=== PATIENT | male | born 1955 | race Caucasian/White ===

== ENCOUNTER 2022-02-17 07:34 | Outpatient (CLI) | payer MEDICARE, BC, SELFPAY | END 2022-02-17 07:35 | disposition home or self-care (01) | PROVIDERS: PCP Surgery; Visit Provider Family Medicine | DX: M54.16 Radiculopathy, lumbar region (principal); M51.36 Other intervertebral disc degeneration, lumbar region | CPT/HCPCS: 64483; J1100; Q9966 ==

== ENCOUNTER 2022-04-20 13:52 | Emergency (ER) | payer MEDICARE, BC, SELFPAY ==
[2022-04-20 14:38] VITALS: BP 124/75; PULSE 63; RESP 14; TEMP 36.6; O2SAT 97; BMI 24.4
--- NOTE | 2022-04-20 17:30 | ED.SKABFB ---
HPI - Skin/Abscess/Foreign Bdy General Chief complaint: Skin/Abscess/Foreign Body Stated complaint: Cellulitis Time Seen by Provider: 04/20/22 17:14 History of Present Illness HPI narrative: This 66-year-old male comes in reporting some erythema and warmth on the right anterior thigh. This is been present for the past 3 days or so. He started taking doxycycline 6 days ago for a recurrent sinusitis. He does not report any fevers. Related Data Home Medications Medication Instructions Recorded Confirmed carvedilol 12.5 mg tablet mg 04/20/22 doxycycline hyclate 100 mg tablet mg 04/20/22 fluticasone propionate 50 intranasal 04/20/22 mcg/actuation nasal spray,suspension rosuvastatin 40 mg tablet mg 04/20/22 tamsulosin 0.4 mg capsule mg PO 04/20/22 Previous Rx's Medication Instructions Recorded cephalexin 500 mg capsule 500 mg PO TID 7 days #21 caps 04/20/22 Allergies Allergy/AdvReac Type Severity Reaction Status Date / Time No Known Drug Allergies Allergy Verified 02/17/22 08:10 Review of Systems Status of ROS: Reports: 10 or more systems reviewed and unremarkable except as noted in History and below Narrative: Constitutional: No fevers, no weight gain or loss. Eyes: No discharge. No vision changes. HENT: No congestion, no sore throat, no ear pain. Recurrent sinusitis symptoms. Cardiovascular: No chest pain, no palpitations. Respiratory: No shortness of breath, no wheezes, no cough. Gastrointestinal: No abdominal pain, no vomiting, no diarrhea. Genitourinary: No dysuria, no hematuria. Musculoskeletal: Normal range of motion. Skin: Erythema on the right anterior thigh as described above. Neurological: No dizziness, weakness, sensory change, speech change. Endo/Heme/Allergies: No bruising or bleeding. No polydipsia. Pysch: no suicidality, no anxiety, no insomnia. All other systems reviewed and are negative. Exam Narrative: Exam Narrative: Constitutional: Well-developed, well-nourished, no acute distress. HEENT: Normocephalic, atraumatic. Neck: Normal range of motion. Nontender. Supple. Heart: Intact distal pulses. Lungs: No chest discomfort. No wheezes, rhonchi, or rales. Abdomen: Nontender. Back: Normal range of motion. Extremities: Normal range of motion. No injury. Skin: Intact. The right thigh has an area of erythema that is approximately 12 cm in diameter. This is typical of cellulitis. There is no sign of abscess. Neurologic: No altered sensation. No weakness. Alert and oriented. Psychiatric: No suicidality. No anxiety or depression. No insomnia. Nursing notes and vitals signs are reviewed. Const: Vital Signs, click to edit/add: Vital Signs - 24 hr 04/20/22 14:38 Temperature 97.8 F Pulse Rate [Pulse Oximeter] 63 Respiratory Rate 14 Blood Pressure [Ri t Upper Arm] 124/75 Pulse Oximetry 97 Oxygen Delivery Me thod Room Air Course Vital Signs Vital signs: Initial Vital Signs Temperature 97.8 F 04/20/22 14:38 Temperature Source Temporal Artery Scan 04/20/22 14:38 Pulse Rate 63 04/20/22 14:38 Respiratory Rate 14 04/20/22 14:38 Blood Pressure 124/75 04/20/22 14:38 Blood Pressure Mean 91 04/20/22 14:38 Pulse Oximetry 97 04/20/22 14:38 Oxygen Delivery Method 04/20/22 14:38 Vital Signs Temperature 97.8 F 04/20/22 14:38 Pulse Rate 63 04/20/22 14:38 Respiratory Rate 14 04/20/22 14:38 Blood Pressure 124/75 04/20/22 14:38 Pulse Oximetry 97 04/20/22 14:38 Oxygen Delivery Method 04/20/22 14:38 Temperature 97.8 F 04/20/22 14:38 Pulse Rate 63 04/20/22 14:38 Respiratory Rate 14 04/20/22 14:38 Blood Pressure 124/75 04/20/22 14:38 Pulse Oximetry 97 04/20/22 14:38 Oxygen Delivery Method 04/20/22 14:38 MDM - Skin/Abscess/Foreign Bdy MDM Narrative Medical decision making narrative: This patient has a cellulitis in the right anterior thigh. He is currently taking doxycycline which according to [place] guide does not cover strep a and B species. Most likely this is a cellulitis that needs standard treatment with Keflex. This was prescribed for him. I advised him to continue with the doxycycline as scheduled also. I also describe signs and symptoms that indicate a need for return and re-evaluation. Discharge Plan Discharge Clinical Impression: Cellulitis Patient Disposition: Home, Self-Care Condition: Stable Additional Instructions: Take medication as prescribed. Continue other current plans also. Return if worsening. Prescriptions: New cephalexin 500 mg capsule 500 mg PO TID 7 Days Qty: 21 0RF No Action carvedilol 12.5 mg tablet tamsulosin 0.4 mg capsule PO fluticasone propionate 50 mcg/actuation spray,suspension INTRANASAL doxycycline hyclate 100 mg tablet Label Comments: TAKE 1 TABLET BY MOUTH TWICE DAILY FOR 10 DAYS rosuvastatin 40 mg tablet Follow Up/Referrals: Wiley Chiu MD [Primary Care Provider] - Stand Alone Forms: [employer] Info Instructions
[2022-04-20 17:51] VITALS: BP 149/92; PULSE 54; RESP 18; TEMP 35.9; O2SAT 97
== END 2022-04-20 17:59 | disposition home or self-care (01) ==
LOC: ED 17:40
PROVIDERS: Emergency Provider Emergency Medicine Emergency Medical Services; PCP Surgery
DX: L03.116 Cellulitis of left lower limb (principal)
CPT/HCPCS: 99282; 99283; 99284

== ENCOUNTER 2022-04-22 13:27 | Emergency (ER) | payer MEDICARE, BC, SELFPAY ==
[2022-04-22 13:39] VITALS: BP 136/80; PULSE 60; RESP 16; TEMP 36.2; O2SAT 100; BMI 24.4
--- NOTE | 2022-04-22 14:30 | ED.GENADULT ---
HPI - General Adult General Time Seen by Provider: 14:30 Date Seen: 04/22/22 Chief complaint: Skin/Abscess/Foreign Body Stated complaint: Cellulitis Time Seen by Provider: 04/22/22 13:30 Source: patient Mode of arrival: ambulatory Limitations: no limitations History of Present Illness HPI narrative: Patient is a 58 year white male was seen for cellulitis couple days ago and put on Keflex, been on doxycycline before that. He has noticed a rash on his back and chest. No shortness of breath, no difficulty breathing he thinks he had an abrasion on the right thigh and that caused the cellulitis. He has otherwise been pretty healthy sat mom heart history and is on carvedilol statin and tamsulosin. He has had no chills fevers or rigors Related Data Home Medications Medication Instructions Recorded Confirmed carvedilol 12.5 mg tablet mg 04/20/22 doxycycline hyclate 100 mg tablet mg 04/20/22 fluticasone propionate 50 intranasal 04/20/22 mcg/actuation nasal spray,suspension rosuvastatin 40 mg tablet 40 mg 04/20/22 tamsulosin 0.4 mg capsule 0.4 mg PO 04/20/22 Previous Rx's Medication Instructions Recorded cephalexin 500 mg capsule 500 mg PO TID 7 days #21 caps 04/20/22 sulfamethoxazole 800 1 tab PO BID #14 tabs 04/22/22 mg-trimethoprim 160 mg tablet Allergies Allergy/AdvReac Type Severity Reaction Status Date / Time No Known Drug Allergies Allergy Verified 02/17/22 08:10 Review of Systems Status of ROS: Reports: 6 or more systems reviewed and unremarkable except as noted in History and below PFSH PFS Social History Smoking Status: Never smoker Do you use any of these nicotine containing products: None Second hand tobacco smoke exposure: Yes How often do you have a drink containing alcohol: 2-3 times a week How many standard drinks containing alcohol do you have on a typical day: 1 or 2 How often do you have six or more drinks on one occasion: Never AUDIT-C Alcohol total score: 3 Non-prescribed substance use: denies use service: No Exam Narrative: Exam Narrative: Patient is a dollar bill size area of redness in the some central scabbing and his right anterior thigh, no fluctuance, no deep palpable firmness, it feels fairly superficial He has got a scar fine macular rash over his chest and back Const: Vital Signs, click to edit/add: Vital Signs - 24 hr 04/22/22 13:39 Temperature 97.2 F L Pulse Rate [Left P ulse Oximeter] 60 Respiratory Rate 16 Blood Pressure [Le ft Upper Arm] 136/80 Pulse Oximetry 100 Oxygen Delivery Me thod Room Air Course Vital Signs Vital signs: Initial Vital Signs Temperature 97.2 F L 04/22/22 13:39 Temperature Source Temporal Artery Scan 04/22/22 13:39 Pulse Rate 60 04/22/22 13:39 Pulse Rhythm 04/22/22 13:39 Pulse Strength 3+ Normal 04/22/22 13:39 Respiratory Rate 16 04/22/22 13:39 Blood Pressure 136/80 04/22/22 13:39 Blood Pressure Mean 98 04/22/22 13:39 Blood Pressure Position Sitting 04/22/22 13:39 Pulse Oximetry 100 04/22/22 13:39 Oxygen Delivery Method 04/22/22 13:39 Vital Signs Temperature 97.2 F L 04/22/22 13:39 Pulse Rate 60 04/22/22 13:39 Respiratory Rate 16 04/22/22 13:39 Blood Pressure 136/80 04/22/22 13:39 Pulse Oximetry 100 04/22/22 13:39 Oxygen Delivery Method 04/22/22 13:39 Temperature 97.2 F L 04/22/22 13:39 Pulse Rate 60 04/22/22 13:39 Respiratory Rate 16 04/22/22 13:39 Blood Pressure 136/80 04/22/22 13:39 Pulse Oximetry 100 04/22/22 13:39 Oxygen Delivery Method 04/22/22 13:39 Medical Decision Making MDM Narrative Medical decision making narrative: Patient has been on doxycycline and now Keflex for couple of days and has a macular rash, would stop the doxycycline and Keflex. I suspect that is the Keflex I gave him the rash. Will given Benadryl 50 mg orally now, have him continue 25-50 t.i.d. over the next 3-5 days. Will have him start Septra DS 1 p.o. b.i.d. x7 days starting tomorrow to make sure that the rash does not worsen today. Follow-up with primary care in 2-3 days for reassessment certainly sooner change concerns worsening they can return to the ED. May use some topical hydrocortisone as well for the rash if pruritic Discharge Plan Discharge Clinical Impression: Cellulitis Patient Disposition: Home, Self-Care Condition: Stable Additional Instructions: Light activity, Benadryl 25-50 mg t.i.d. over the next 3-4 days, topical 1% hydrocortisone to the rash area. Stop Keflex and doxycycline. Starting tomorrow 04/23, could start Septra DS 1 p.o. b.i.d. x7 days. Recheck with regular doctor in 48 hours to make sure it is improving. Return to ED sooner any problems concerns difficulty specifically breathing difficulty shortness of breath, etc. Activity Level: Light activity Discharge Diet: Regular Prescriptions: New sulfamethoxazole-trimethoprim 800-160 mg tablet 1 tab PO BID Qty: 14 0RF No Action carvedilol 12.5 mg tablet tamsulosin 0.4 mg capsule 0.4 mg PO fluticasone propionate 50 mcg/actuation spray,suspension INTRANASAL doxycycline hyclate 100 mg tablet Label Comments: TAKE 1 TABLET BY MOUTH TWICE DAILY FOR 10 DAYS rosuvastatin 40 mg tablet 40 mg cephalexin 500 mg capsule 500 mg PO TID 7 Days Qty: 21 0RF Follow Up/Referrals: Wiley Chiu MD [Primary Care Provider] - Stand Alone Forms: [employer] Info Instructions
== END 2022-04-22 14:21 | disposition home or self-care (01) ==
PROVIDERS: Emergency Provider Family Medicine; PCP Surgery
DX: L03.312 Cellulitis of back [any part except buttock and flank] (principal); L03.313 Cellulitis of chest wall
CPT/HCPCS: 99283

== ENCOUNTER 2022-05-05 12:13 | Outpatient (CLI) | payer MEDICARE, BC, SELFPAY | END 2022-05-05 12:14 | disposition home or self-care (01) | LOC: RAD 12:14 → INJ CL 12:16 | PROVIDERS: PCP Surgery; Visit Provider Family Medicine | DX: M53.3 Sacrococcygeal disorders, not elsewhere classified (principal) | CPT/HCPCS: 27096; J0702; Q9966 ==

== ENCOUNTER 2022-06-30 12:53 | Outpatient (CLI) | payer MEDICARE, BC, SELFPAY | END 2022-06-30 12:54 | disposition home or self-care (01) | LOC: INJ CL 12:55 | PROVIDERS: PCP Surgery; Visit Provider Family Medicine | DX: M53.3 Sacrococcygeal disorders, not elsewhere classified (principal) | CPT/HCPCS: 27096; J0702; Q9966 ==

== ENCOUNTER 2022-12-08 08:59 | Outpatient (CLI) | payer MEDICARE, BC, SELFPAY | END 2022-12-08 09:00 | disposition home or self-care (01) | LOC: INJ CL 09:00 | PROVIDERS: PCP Surgery; Visit Provider Family Medicine | DX: M53.3 Sacrococcygeal disorders, not elsewhere classified (principal) | CPT/HCPCS: 27096; J0702; Q9966 ==

== ENCOUNTER 2023-01-05 09:49 | Outpatient (CLI) | payer MEDICARE, BC, SELFPAY | END 2023-01-05 09:50 | disposition home or self-care (01) | LOC: INJ CL 09:50 | PROVIDERS: PCP Surgery; Visit Provider Family Medicine | DX: M54.16 Radiculopathy, lumbar region (principal) | CPT/HCPCS: 64483; 64484; J1100; Q9966 ==

== ENCOUNTER 2023-03-09 09:10 | Outpatient (CLI) | payer MEDICARE, BC, SELFPAY | END 2023-03-09 09:11 | disposition home or self-care (01) | LOC: INJ CL 09:10 | PROVIDERS: PCP Surgery; Visit Provider Family Medicine | DX: M53.3 Sacrococcygeal disorders, not elsewhere classified (principal) | CPT/HCPCS: 27096; J0702; Q9966 ==

== ENCOUNTER 2023-05-01 07:08 | Emergency (ER) | payer MEDICARE, BC, SELFPAY ==
[2023-05-01 07:29] VITALS: BP 116/65; PULSE 61; RESP 16; TEMP 37.1; O2SAT 98; BMI 25.0
--- NOTE | 2023-05-01 07:40 | ED.EYEPROB ---
HPI - Eye Problem General Chief complaint: Eye Problems Stated complaint: eye infection History of Present Illness HPI Narrative: Patient is a 67-year-old gentleman comes in today with mattery exudative drainage from both eyes. Also has swelling and erythema of the soft tissue around his eyes. He has sinus congestion nonproductive cough general malaise and fatigue as well. His visual acuity is unchanged. He has had no chest pain shortness a breath orthopnea no PND no nausea no vomiting. He states he does use eye lubrication but no other drops. Patient states he is otherwise healthy is up-to-date on his tetanus shot. Related Data Home Medications Medication Instructions Recorded Confirmed carvedilol 12.5 mg tablet mg 04/20/22 03/24/23 fluticasone propionate 50 intranasal 04/20/22 03/24/23 mcg/actuation nasal spray,suspension rosuvastatin 40 mg tablet 40 mg 04/20/22 03/24/23 tamsulosin 0.4 mg capsule 0.4 mg PO 04/20/22 03/24/23 aspirin 81 mg tablet,delayed 81 mg PO QDAY 01/25/23 03/24/23 release (Adult Aspirin Regimen) tadalafil 5 mg tablet (Cialis) 5 mg PO QDAY 01/25/23 03/24/23 valacyclovir 1 gram tablet 1,000 mg PO QDAY 01/25/23 03/24/23 (Valtrex) Previous Rx's Medication Instructions Recorded albuterol sulfate 90 mcg/actuation 2 puff inhalation Q4-6H PRN 08/09/22 aerosol inhaler shortness of breath or wheezing #6.7 grams amoxicillin 875 mg-potassium 1 tab PO Q12H Cellulitis #14 tabs 05/01/23 clavulanate 125 mg tablet gentamicin 0.3 % eye drops 2 drp ophthalmic (eye) Q4H 05/01/23 Conjunctivitis #5 mL Allergies Allergy/AdvReac Type Severity Reaction Status Date / Time guaifenesin [From Mucinex] Allergy Mild Verified 05/01/23 07:33 cephalexin [From Keflex] Allergy Rash Verified 03/25/23 11:32 doxycycline Allergy Rash Verified 03/25/23 11:32 Review of Systems Status of ROS: Reports: 10 or more systems reviewed and unremarkable except as noted in History and below [facility] Surgical History History of sinus surgery ?Z98.890 - Other specified postprocedural states (ICD-10) Social History Smoking Status: Never smoker Do you use any of these nicotine containing products: None Second hand tobacco smoke exposure: Yes How often do you have a drink containing alcohol: 2-3 times a week How many standard drinks containing alcohol do you have on a typical day: 1 or 2 How often do you have six or more drinks on one occasion: Never AUDIT-C Alcohol total score: 3 Non-prescribed substance use: denies use service: No Exam Narrative: Exam Narrative: EXAM GENERAL: Patient appears uncomfortable. EYES: Injection with exudative drainage noted with surrounding erythema of both I soft tissue. Tubular his melody is normal. ENT: Tympanic membranes and oropharynx normal. THYROID: no thyroid nodules or thyromegaly. LYMPH: No supraclavicular or cervical lymphadenopathy. SKIN: Visible skin seen during exam normal or with benign process only. EXT: No dependent lower extremity pedal edema. HEART: Regular rate and rhythm with no murmurs, rubs, or gallops. LUNGS: Clear to auscultation bilaterally with no crackles or wheezes. ABD: Soft, non tender, non distended. PSYCH: Good eye contact, speech is not pressured. Const: Vital Signs, click to edit/add: Vital Signs - 24 hr 05/01/23 07:29 Temperature 98.8 F Pulse Rate [Pulse Oximeter] 61 Respiratory Rate 16 Blood Pressure [Le ft Upper Arm] 116/65 Pulse Oximetry 98 Oxygen Delivery Me thod Room Air Course Course ED Course: Patient seen and examined. Vital Signs Vital signs: Initial Vital Signs Temperature 98.8 F 05/01/23 07:29 Temperature Source Temporal Artery Scan 05/01/23 07:29 Pulse Rate 61 05/01/23 07:29 Respiratory Rate 16 05/01/23 07:29 Blood Pressure 116/65 05/01/23 07:29 Blood Pressure Mean 82 05/01/23 07:29 Blood Pressure Position Sitting 05/01/23 07:29 Pulse Oximetry 98 05/01/23 07:29 Oxygen Delivery Method Room Air 05/01/23 07:29 Vital Signs Temperature 98.8 F 05/01/23 07:29 Pulse Rate 61 05/01/23 07:29 Respiratory Rate 16 05/01/23 07:29 Blood Pressure 116/65 05/01/23 07:29 Pulse Oximetry 98 05/01/23 07:29 Oxygen Delivery Method Room Air 05/01/23 07:29 Temperature 98.8 F 05/01/23 07:29 Pulse Rate 61 05/01/23 07:29 Respiratory Rate 16 05/01/23 07:29 Blood Pressure 116/65 05/01/23 07:29 Pulse Oximetry 98 05/01/23 07:29 Oxygen Delivery Method Room Air 05/01/23 07:29 MDM - Eye Problem MDM Narrative Medical decision making narrative: Patient presents with symptoms of pinkeye and sinusitis. Also has erythema of the soft tissue around both eyes. I did encourage him to keep the exudate very his daughter both eyes and informed him that of pinkeye is often very contagious. I placed him on gentamicin eyedrops plus Augmentin and recommended symptomatic treatment with primary care follow-up. Differential Diagnosis Differential diagnosis: Likely corneal abrasion, conjunctivitis, acute iritis, hyphema, periorbital cellulitis, subconjunctival hemorrhage, glaucoma, corneal ulcer and ruptured globe Discharge Plan Discharge Clinical Impression: Conjunctivitis Condition: Stable Instructions: Conjunctivitis (ED) Additional Instructions: Keep eyes clean Drops as directed Augmentin as directed Tylenol Motrin Follow-up with your doctor as needed Activity Level: No Restrictions Discharge Diet: Regular Prescriptions: New gentamicin 0.3 % drops 2 drp ophthalmic (eye) Q4H Qty: 5 1RF amoxicillin-pot clavulanate 875-125 mg tablet 1 tab PO Q12H Qty: 14 0RF No Action albuterol sulfate 90 mcg/actuation HFA aerosol inhaler 2 puff inhalation Q4-6H PRN (Reason: shortness of breath or wheezing) Qty: 6.7 0RF tadalafil [Cialis] 5 mg tablet 5 mg PO QDAY valacyclovir [Valtrex] 1 gram tablet 1,000 mg PO QDAY aspirin [Adult Aspirin Regimen] 81 mg tablet,delayed release (DR/EC) 81 mg PO QDAY carvedilol 12.5 mg tablet tamsulosin 0.4 mg capsule 0.4 mg PO fluticasone propionate 50 mcg/actuation spray,suspension INTRANASAL rosuvastatin 40 mg tablet 40 mg Follow Up/Referrals: Wiley Chiu MD [Primary Care Provider] - Stand Alone Forms: [employer] Instructions
== END 2023-05-01 08:11 | disposition home or self-care (01) ==
PROVIDERS: Emergency Provider Internal Medicine; PCP Surgery
DX: H10.9 Unspecified conjunctivitis (principal)
CPT/HCPCS: 95992; 99283

== ENCOUNTER 2023-07-05 17:32 | Outpatient (CLI) | payer MEDICARE, BC, SELFPAY | END 2023-07-05 17:33 | disposition home or self-care (01) | LOC: AMB 07-06 12:58 | PROVIDERS: PCP Surgery; Visit Provider Family Medicine | DX: M25.551 Pain in right hip (principal) | CPT/HCPCS: A0425; A0427 ==

== ENCOUNTER 2023-07-05 18:20 | Emergency (ER) | payer MEDICARE, BC, SELFPAY ==
[2023-07-05 18:27] VITALS: BP 128/76; PULSE 83; RESP 18; TEMP 36.3; O2SAT 96; BMI 25.1
[2023-07-05 19:02] LABS: Basophils Absolute Auto 0.03 K/uL (0.00-0.30); Basophils Percent Auto 0.6 % (0.0-3.0); Eosinophils Absolute Auto 0.22 K/uL (0.00-0.50); Eosinophils Percent Auto 4.5 % (0.0-7.0); Hematocrit 26.6 % (37.0-53.0); Lymphocytes Percent Auto 18.2 % (20-44); Mean Corpuscular HGB Conc 34 gm/dL (32-36); Mean Corpuscular Hemoglobin 31 pg (26-34); Mean Corpuscular Volume 92 fL (80-100); Monocytes Percent Auto 11.1 % (0.0-11.0); Neutrophils Percent Auto 65.6 % (42.0-72.0); Platelet Count* 184 K/uL (140-440); RDW Coefficient of Variation % 13.4 % (11.5-15.5); Red Blood Count 2.89 m/uL (4.30-5.90); White Blood Count* 4.88 K/uL (4.50-11.00)
[2023-07-05] MEDS: MORPHINE 4 MG/ML INJ IVP ×2 (19:04→21:11)
[2023-07-05 19:05] LABS: Slide Review Reflex No
[2023-07-05 19:17] LABS: Chloride* 100 mmol/L (96-114); Potassium* 3.8 mmol/L (3.6-5.1); Sodium* 135 mmol/L (135-149)
[2023-07-05 19:20] LABS: Creatinine* 1.3 mg/dL (0.5-1.5); Est. Creatinine Clearance* 57.12; Estimated Glomerular Filt Rate 59 ml/min
[2023-07-05 19:21] LABS: Anion Gap 9 mEq/L (7-15); Blood Urea Nitrogen* 25 mg/dL (7-30); Calcium* 9.5 mg/dL (8.4-10.6); Carbon Dioxide* 26 mmol/L (20-32); Glucose* 126 mg/dL (60-115)
[2023-07-05 19:23] LABS: C Reactive Protein* 4.3 mg/dL (0.5-1.0)
[2023-07-05 19:30] VITALS: BP 117/60
[2023-07-05 19:39] VITALS: PULSE 77; O2SAT 92
--- NOTE | 2023-07-05 20:40 | ED.GENADULT ---
HPI - General Adult General Date Seen: 07/05/23 Chief complaint: Hip Injury/Pain Stated complaint: hip pain Time Seen by Provider: 07/05/23 18:23 Source: patient, family and RN notes reviewed Mode of arrival: EMS Limitations: no limitations History of Present Illness HPI narrative: Patient is a 67-year-old male who had surgery on his right SI joint 6 days ago at [facility]. He reports that pain had been decreasing until yesterday when he started to get more pain in the lateral hip area. He feels the incision looks okay, he notes a lot of bruising. He is on a baby aspirin only in terms of anticoagulants. He has been taking oxycodone, he says he was given 20 knee initially and then was given another 40. He has not had fevers or chills. Pain is localized over the lateral hip. They checked in with the on-call orthopedist at the [facility] yesterday apparently, and were advised to call the clinic this morning. They say they called the clinic this morning, were told that it could be muscle spasm and they were prescribed cyclobenzaprine. His follow-up appointment is not for another 6 weeks or so. Related Data Home Medications Medication Instructions Recorded Confirmed carvedilol 12.5 mg tablet mg 04/20/22 03/24/23 fluticasone propionate 50 intranasal 04/20/22 03/24/23 mcg/actuation nasal spray,suspension rosuvastatin 40 mg tablet 40 mg 04/20/22 03/24/23 tamsulosin 0.4 mg capsule 0.4 mg PO 04/20/22 03/24/23 aspirin 81 mg tablet,delayed 81 mg PO QDAY 01/25/23 07/05/23 release (Adult Aspirin Regimen) tadalafil 5 mg tablet (Cialis) 5 mg PO QDAY 01/25/23 07/05/23 valacyclovir 1 gram tablet 1,000 mg PO QDAY 01/25/23 07/05/23 (Valtrex) cyclobenzaprine 10 mg tablet 10 mg PO 3XD 07/05/23 07/05/23 magnesium citrate 296 ml PO ONCE 07/05/23 07/05/23 methocarbamol 750 mg tablet 750 mg PO Q6H PRN 07/05/23 07/05/23 oxycodone 5 mg tablet mg PO 07/05/23 tramadol 50 mg tablet 50 mg PO 3XD PRN 07/05/23 07/05/23 Previous Rx's Medication Instructions Recorded albuterol sulfate 90 mcg/actuation 2 puff inhalation Q4-6H PRN 08/09/22 aerosol inhaler shortness of breath or wheezing #6.7 grams gentamicin 0.3 % eye drops 2 drp ophthalmic (eye) Q4H 05/01/23 Conjunctivitis #5 mL Allergies Allergy/AdvReac Type Severity Reaction Status Date / Time guaifenesin [From Mucinex] Allergy Mild Verified 07/05/23 18:32 cephalexin [From Keflex] Allergy Rash Verified 07/05/23 18:32 doxycycline Allergy Rash Verified 07/05/23 18:32 Review of Systems Status of ROS: Reports: 10 or more systems reviewed and unremarkable except as noted in History and below [facility] Surgical History History of sinus surgery ?Z98.890 - Other specified postprocedural states (ICD-10) Social History Smoking Status: Never smoker Do you use any of these nicotine containing products: None Second hand tobacco smoke exposure: Yes How often do you have a drink containing alcohol: 2-3 times a week How many standard drinks containing alcohol do you have on a typical day: 1 or 2 How often do you have six or more drinks on one occasion: Never AUDIT-C Alcohol total score: 3 Non-prescribed substance use: denies use service: No Exam Narrative: Exam Narrative: Vital signs as noted above. In general, an alert, nontoxic male. Kind of writhing on the bed. Head: Normocephalic, atraumatic. Eyes: Pupils are equal reactive. Extraocular movements are full. Conjunctivae are normal. ENT: Mucous membranes are moist. Throat is normal. Neck: Supple without lymphadenopathy. Heart: Regular rate and rhythm. No murmur or rub. Lungs: Clear bilaterally. No increased work of breathing, crackles or wheezes. Abdomen: Soft and nontender. Extremities: The right hip is notable for an intact incision without significant erythema, swelling or drainage. He has diffuse bruising noted over the lateral hip as well as in the right low back. Over the right lateral hip in the area of the greater trochanter and just distal to that he has swelling, significant bruising, and significant tenderness. There is no erythema, induration or warmth. Compartments otherwise soft. Flexion extension of the hip does not cause significant pain. Distal CMS intact. Neurologic: Patient is alert and oriented to person and place. Speech is fluent. Face is symmetric. Moves all extremities equally. Sensation intact to light touch. Affect: Normal. Skin: Warm and dry. Well perfused. Const: Vital Signs, click to edit/add: Vital Signs - 24 hr 07/05/23 18:27 07/05/23 19:30 07/05/23 19:39 Temperature 97.3 F L Pulse Rate 77 Pulse Rate [Pulse Oximeter] 83 Respiratory Rate 18 Blood Pressure [Le ft Upper Arm] 128/76 117/60 Pulse Oximetry 96 92 Oxygen Delivery Me thod Room Air Documenting provider has reviewed patient's vital signs: yes Course Course ED Course: Exam is consistent with a hematoma over the lateral hip area. His pain is very localized to the lateral hip, he is actually not complaining of SI pain or radiating pain. Palpation over the hematoma worsens his symptoms. The joint itself does not seem to be inflamed. He did note to the nurse after my initial evaluation that he has been having difficulty completely voiding today so Zuluaga was placed with about 600 mL out. He does have a history of prostatic hypertrophy and takes Flomax. I did labs including a CBC which shows a normal white blood cell count, hemoglobin is 9, baseline of 13.9 several years ago. This is likely related to postoperative blood loss and I suspect hematoma. Metabolic panel unremarkable. CRP mildly elevated at 4.3. I did discuss his case with Tiago Arredondo, who was on-call for Orthopedic surgery at [facility]. He did not feel imaging was needed given that clinically this does not appear to be infected. He recommended ice, ongoing use of pain medication. He said he would contact the patient's surgeon and let him know that he was having difficulty so that they can see him more promptly in follow-up. I have discussed all this with patient and his . He was in the ER for a bit while they waited on a ride, had an additional dose of morphine. Return as needed. Vital Signs Vital signs: Initial Vital Signs Temperature 97.3 F L 07/05/23 18:27 Temperature Source Temporal Artery Scan 07/05/23 18:27 Pulse Rate 83 07/05/23 18:27 Respiratory Rate 18 07/05/23 18:27 Blood Pressure 128/76 07/05/23 18:27 Blood Pressure Mean 93 07/05/23 18:27 Blood Pressure Position Supine 07/05/23 18:27 Pulse Oximetry 96 07/05/23 18:27 Oxygen Delivery Method Room Air 07/05/23 18:27 Vital Signs Temperature 97.3 F L 07/05/23 18:27 Pulse Rate 83 07/05/23 18:27 Respiratory Rate 18 07/05/23 18:27 Blood Pressure 128/76 07/05/23 18:27 Pulse Oximetry 96 07/05/23 18:27 Oxygen Delivery Method Room Air 07/05/23 18:27 Temperature 97.3 F L 07/05/23 18:27 Pulse Rate 77 07/05/23 19:39 Respiratory Rate 18 07/05/23 18:27 Blood Pressure 117/60 07/05/23 19:30 Pulse Oximetry 92 07/05/23 19:39 Oxygen Delivery Method Room Air 07/05/23 18:27 Medications Administered Medications: Discontinued Medications Generic Name Dose Route Start Last Admin Trade Name Freq PRN Reason Stop Dose Admin Morphine Sulfate 4 mg 07/05/23 18:41 07/05/23 19:04 Morphine 4 Mg/Ml Inj IVP 07/05/23 18:42 4 mg ONCE ONE Administration Morphine Sulfate 4 mg 07/05/23 20:46 07/05/23 21:11 Morphine 4 Mg/Ml Inj IVP 07/05/23 20:47 4 mg ONCE ONE Administration Medical Decision Making Lab Data Labs: Lab Results 07/05/23 Range/Units 18:57 WBC 4.88 (4.50-11.00) K/uL RBC 2.89 L (4.30-5.90) m/uL Hgb 9.0 L (13.5-17.5) gm/dL Hct 26.6 L (37.0-53.0) % MCV 92 (80-100) fL MCH 31 (26-34) pg MCHC 34 (32-36) gm/dL RDW Coeff of Rossana 13.4 (11.5-15.5) % Plt Count 184 (140-440) K/uL Neut % (Auto) 65.6 (42.0-72.0) % Lymph % (Auto) 18.2 L (20-44) % Wilkin % (Auto) 11.1 H (0.0-11.0) % Eos % (Auto) 4.5 (0.0-7.0) % Baso % (Auto) 0.6 (0.0-3.0) % Neut # (Auto) 3.20 (1.7-7.0) K/uL Lymph # (Auto) 0.90 (0.90-2.90) K/uL Wilkin # (Auto) 0.50 (0.00-0.90) K/UL Eos # (Auto) 0.22 (0.00-0.50) K/uL Baso # (Auto) 0.03 (0.00-0.30) K/uL Abs Immat Gran (auto) 0.00 (0.00-0.30) K/uL Imm/Tot Granulo (auto) 0.0 % Sodium 135 (135-149) mmol/L Potassium 3.8 (3.6-5.1) mmol/L Chloride 100 (96-114) mmol/L Carbon Dioxide 26 (20-32) mmol/L Anion Gap 9 (7-15) mEq/L BUN 25 (7-30) mg/dL Creatinine 1.3 (0.5-1.5) mg/dL Estimated Creat Clear 57.12 Estimated GFR 59 ml/min Glucose 126 H (60-115) mg/dL Calcium 9.5 (8.4-10.6) mg/dL C-Reactive Protein 4.3 H (0.5-1.0) mg/dL Discharge Plan Discharge Clinical Impression: Hematoma of right hip Patient Disposition: Home, Self-Care Condition: Improved Instructions: Hematoma (ED) Additional Instructions: Continue your oxycodone as prescribed. Ice, about 20 minutes several times a day for the next few days. I spoke with Dr. Maria Elena corral, he was going to relay your symptoms to your surgeon. Please call the clinic tomorrow so that more urgent follow-up can be arranged. If you notice redness, warmth, increasing pain or new symptoms such as fever, he should return to the ER. Prescriptions: No Action albuterol sulfate 90 mcg/actuation HFA aerosol inhaler 2 puff inhalation Q4-6H PRN (Reason: shortness of breath or wheezing) Qty: 6.7 0RF tadalafil [Cialis] 5 mg tablet 5 mg PO QDAY valacyclovir [Valtrex] 1 gram tablet 1,000 mg PO QDAY aspirin [Adult Aspirin Regimen] 81 mg tablet,delayed release (DR/EC) 81 mg PO QDAY carvedilol 12.5 mg tablet tamsulosin 0.4 mg capsule 0.4 mg PO fluticasone propionate 50 mcg/actuation spray,suspension INTRANASAL rosuvastatin 40 mg tablet 40 mg gentamicin 0.3 % drops 2 drp ophthalmic (eye) Q4H Qty: 5 1RF cyclobenzaprine 10 mg tablet 10 mg PO 3XD tramadol 50 mg tablet 50 mg PO 3XD PRN methocarbamol 750 mg tablet 750 mg PO Q6H PRN magnesium citrate Solution 296 ml PO ONCE oxycodone 5 mg tablet PO Follow Up/Referrals: Wiley Chiu MD [Primary Care Provider] - Stand Alone Forms: [facility] Info Instructions
[2023-07-05 21:53] VITALS: BP 124/82; PULSE 90; O2SAT 96
--- NOTE | 2023-07-05 21:55 | ED.NURSE ---
Pt catheter DC'd, additional ~400mLs urine emptied from catheter bag. Pt provided with walker, able to stand and pivot and take steps with assist of walker. MD notified.
== END 2023-07-05 22:06 | disposition home or self-care (01) ==
PROVIDERS: Emergency Provider Emergency Medicine; PCP Surgery
DX: S70.01XA Contusion of right hip, initial encounter (principal)
CPT/HCPCS: 36415; 51702; 80048; 85025; 86140; 96374; 96376; 99284; J2270

== ENCOUNTER 2023-07-30 09:27 | Inpatient (IN) | payer MEDICARE, BC, SELFPAY ==
[2023-07-30] VITALS (10 sets, daily range): BP systolic 98–130; BP diastolic 62–69; PULSE 76–85; RESP 16–18; TEMP 36.6–37.8; O2SAT 91–98; BMI 25.8
--- NOTE | 2023-07-30 09:52 | ED_ITS ---
HPI - General Adult General Time Seen by Provider: 09:52 Date Seen: 07/30/23 Chief complaint: Weakness Stated complaint: weakness- cant pee Time Seen by Provider: 07/30/23 09:52 Source: patient, RN notes reviewed and old records reviewed Mode of arrival: ambulatory Limitations: no limitations History of Present Illness HPI narrative: This 67-year-old male is coming in with inability to urinate since last night. He is on Flomax baseline. Baseline he admits to frequent nocturia. He is known to have prostate hypertrophy. He has had no fevers or chills. He is also complaining of increasing right buttock pain. This patient is known to have a history of a post surgical hematoma, had surgery on June 30. His notes his hemoglobin was 8.2 in clinic last week. He is on gabapentin, cyclobenzaprine and oxycodone for pain. He is complaining of significant right buttock pain, states it is worsening. 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 He is not on blood thinners. His hematoma was diagnosed on 07/05/2023. His surgery was at [facility], was on his right SI joint reportedly. His believes his hemoglobin before surgery was in the 14 range. Related Data Home Medications Medication Instructions Recorded Confirmed carvedilol 12.5 mg tablet 12.5 mg PO 04/20/22 03/24/23 fluticasone propionate 50 1 spray intranasal 04/20/22 03/24/23 mcg/actuation nasal spray,suspension rosuvastatin 40 mg tablet 40 mg PO DAILY 04/20/22 07/30/23 tamsulosin 0.4 mg capsule 0.4 mg PO Q24H 04/20/22 07/30/23 aspirin 81 mg tablet,delayed 81 mg PO QDAY 01/25/23 07/30/23 release (Adult Aspirin Regimen) tadalafil 5 mg tablet (Cialis) 5 mg PO QDAY 01/25/23 07/30/23 valacyclovir 1 gram tablet 1,000 mg PO QDAY 01/25/23 07/30/23 (Valtrex) cyclobenzaprine 10 mg tablet 10 mg PO 3XD 07/05/23 07/30/23 magnesium citrate 296 ml PO ONCE 07/05/23 07/05/23 oxycodone 5 mg tablet 5 mg PO Q4H 07/05/23 07/30/23 Previous Rx's Medication Instructions Recorded albuterol sulfate 90 mcg/actuation 2 puff inhalation Q4-6H PRN 08/09/22 aerosol inhaler shortness of breath or wheezing #6.7 grams gentamicin 0.3 % eye drops 2 drp ophthalmic (eye) Q4H 05/01/23 Conjunctivitis #5 mL Allergies Allergy/AdvReac Type Severity Reaction Status Date / Time guaifenesin [From Mucinex] Allergy Mild Verified 07/30/23 09:38 cephalexin [From Keflex] Allergy Rash Verified 07/30/23 09:38 doxycycline Allergy Rash Verified 07/30/23 09:38 Review of Systems Status of ROS: Reports: 6 or more systems reviewed and unremarkable except as noted in History and below [facility] Medical History Hip hematoma, right ?S70.01XA - Contusion of right hip, initial encounter (ICD-10) Surgical History History of hip surgery ?Z98.890 - Other specified postprocedural states (ICD-10) History of sinus surgery ?Z98.890 - Other specified postprocedural states (ICD-10) Social History Smoking Status: Never smoker Do you use any of these nicotine containing products: None Second hand tobacco smoke exposure: Yes How often do you have a drink containing alcohol: 2-3 times a week How many standard drinks containing alcohol do you have on a typical day: 1 or 2 How often do you have six or more drinks on one occasion: Never AUDIT-C Alcohol total score: 3 Non-prescribed substance use: denies use service: No Exam Const: Vital Signs, click to edit/add: Vital Signs - 24 hr 07/30/23 09:31 07/30/23 10:01 07/30/23 11:15 Temperature 97.9 F Pulse Rate [Pulse Oximeter] 80 78 Respiratory Rate 18 16 Blood Pressure [Ri ght Upper Arm] 98/62 130/68 Pulse Oximetry 97 98 93 Oxygen Delivery Me thod Room Air Room Air 07/30/23 12:15 07/30/23 14:35 07/30/23 15:15 Temperature Pulse Rate [Pulse Oximeter] 84 76 79 Respiratory Rate 16 16 16 Blood Pressure [Ri ght Upper Arm] 121/62 117/69 116/68 Pulse Oximetry 98 97 98 Oxygen Delivery Me thod Room Air Room Air Room Air 07/30/23 16:15 Temperature Pulse Rate [Pulse Oximeter] 76 Respiratory Rate 16 Blood Pressure [Ri ght Upper Arm] 119/67 Pulse Oximetry 91 Oxygen Delivery Me thod Room Air This 67-year-old male is alert, interactive, initially uncomfortable. Nursing staff was getting about 350 mL on bladder scan but patient was quite uncomfortable. Zuluaga was placed with immediate return of clear yellow urine and patient had significant relief of his abdominal discomfort. He was noted to be complaining of pain, did not want to lie on the right buttock area. Face atraumatic, sclera clear, conjugate gaze. Speech is normal. Lungs are clear, no wheezing or crackles, no tachypnea. CV regular rate and rhythm, no murmur, normal S1-S2, no S3-S4. Abdomen after the fully placed is soft, still with some mild suprapubic tenderness but the fully just been placed. No rebound or guarding, no organomegaly outside of bladder noted. He has dependent ecchymosis it seems to be resolving down the right thigh. He has got a well-healed scar over the right upper gluteal area, this is nontender. He has significant t enderness when I palpate within the gluteus muscle on the right. I see no overlying ecchymosis. His feels like it is still swollen quite a bit. There is maybe some [id number] swelling, difficult to say for sure as this is the 1st time I am seeing this. He is certainly tender when I palpate generally in the gluteus muscle. Really no pain with range of motion of his lower extremities, neurovascular seems to be intact. Documenting provider has reviewed patient's vital signs: yes Course Course ED Course: Patient had obvious urinary retention which is resolved with Zuluaga catheter placement. Will obtain urinalysis but doubt infectious etiology. He is also having significant increasing right buttock pain in the setting of surgery and complicating hematoma. Will give him some IV morphine for pain control, I will do a pelvis CT with IV contrast in obtain baseline labs. He will be monitored on pulse oximetry. Will do type and screening cases hemoglobin is for some reason lowering. Reevaluation(s) Time of Reevaluation #1: 12:38 Reevaluation #1: Reviewed CT and labs with patient and his , hemoglobin at 8.5, not significantly worse. His believes the current size of the hematoma which is 6 x 10 x 13 cm is bigger than the last CT. This was done with the surgeon. We will attempt to contact Dr. Dunbar whom was the surgeon. In trying to pinpoint down if he truly feels that there was not time of specific worsening in this right gluteal region, his feels over the last 2 days she feels his pain is been a bit out of proportion or maybe worse. He does note the pain seems to be worse at night but probably because he is trying to lie down. It certainly does sound like there has been some acute worsening of his right buttock pain or the last couple days. Consultations Consultation #1: We have paged Dr. Dunbar as well as the on-call orthopedist multiple times through the [email or web address] system. We have not heard back yet. I finally have a copy the CT with the measuring hematoma from June which is larger. We will attempt to page out the hospitalist at this time. Time: 17:26 Consultation #2: Have spoken to our hospitalist, still have not heard anything back from anyone at the [facility]. We will observe him here, trend his hemoglobin, work on pain management. I will update the patient and his . Vital Signs Vital signs: Initial Vital Signs Temperature 97.9 F 07/30/23 09:31 Temperature Source Temporal Artery Scan 07/30/23 09:31 Pulse Rate 80 07/30/23 09:31 Respiratory Rate 18 07/30/23 09:31 Blood Pressure 98/62 07/30/23 09:31 Blood Pressure Mean 74 07/30/23 09:31 Blood Pressure Position Sitting 07/30/23 09:31 Pulse Oximetry 97 07/30/23 09:31 Oxygen Delivery Method Room Air 07/30/23 09:31 Vital Signs Temperature 97.9 F 07/30/23 09:31 Pulse Rate 80 07/30/23 09:31 Respiratory Rate 18 07/30/23 09:31 Blood Pressure 98/62 07/30/23 09:31 Pulse Oximetry 97 07/30/23 09:31 Oxygen Delivery Method Room Air 07/30/23 09:31 Temperature 97.9 F 07/30/23 09:31 Pulse Rate 76 07/30/23 16:15 Respiratory Rate 16 07/30/23 16:15 Blood Pressure 119/67 07/30/23 16:15 Pulse Oximetry 91 07/30/23 16:15 Oxygen Delivery Method Room Air 07/30/23 16:15 Medications Administered Medications: Discontinued Medications Generic Name Dose Route Start Last Admin Trade Name Keyurq PRN Reason Stop Dose Admin Morphine Sulfate 4 mg 07/30/23 10:01 07/30/23 10:17 Morphine 4 Mg/Ml Inj IVP 07/30/23 10:02 4 mg ONCE ONE Administration Oxycodone HCl 5 mg 07/30/23 15:08 07/30/23 15:13 Oxycodone 5 Mg Tablet PO 07/30/23 15:09 5 mg ONCE ONE Administration Medical Decision Making Medical Records Medical records reviewed: Yes I reviewed the patient's medical records Medical records narrative: Patient had a pelvis CT without contrast 07/15/2023. He had a fusion of his right sacroiliac joint for sacroiliitis. The right gluteus medius muscle peripherally more hyper attenuating collection measures approximately 10.9 x 7.3 x 11.6 cm (oblique, axial, cranial caudal), most consistent with hematoma based on clinical history. Associated more diffuse asymmetric enlargement of the right gluteus medius. Lab Data Lab results reviewed: Yes I reviewed the patient's lab results Labs: Lab Results 07/30/23 07/30/23 07/30/23 Range/Units 10:00 10:12 10:45 WBC 7.92 (4.50-11.00) K/uL RBC 2.89 L (4.30-5.90) m/uL Hgb 8.5 L (13.5-17.5) gm/dL Hct 26.7 L (37.0-53.0) % MCV 92 (80-100) fL MCH 29 (26-34) pg MCHC 32 (32-36) gm/dL RDW Coeff of Ross[place] 14.3 (11.5-15.5) % Plt Count 240 (140-440) K/uL Neut % (Auto) 81.5 H (42.0-72.0) % Lymph % (Auto) 9.1 L (20-44) % [place] % (Auto) 7.7 (0.0-11.0) % Eos % (Auto) 1.3 (0.0-7.0) % Baso % (Auto) 0.3 (0.0-3.0) % Neut # (Auto) 6.50 (1.7-7.0) K/uL Lymph # (Auto) 0.70 L (0.90-2.90) K/uL [place] # (Auto) 0.60 (0.00-0.90) K/UL Eos # (Auto) 0.10 (0.00-0.50) K/uL Baso # (Auto) 0.02 (0.00-0.30) K/uL Abs Immat Gran (auto) 0.01 (0.00-0.30) K/uL Imm/Tot Granulo (auto) 0.1 % INR 1.07 (0.91-1.10) APTT 39 H (23-33) Seconds Sodium 135 (135-149) mmol/L Potassium 4.0 (3.6-5.1) mmol/L Chloride 105 (96-114) mmol/L Carbon Dioxide 24 (20-32) mmol/L Anion Gap 6 L (7-15) mEq/L BUN 21 (7-30) mg/dL Creatinine 1.0 (0.5-1.5) mg/dL Estimated Creat Clear 71.99 Estimated GFR 81 ml/min Glucose 107 (60-115) mg/dL Calcium 9.5 (8.4-10.6) mg/dL Total Bilirubin 1.2 (0.1-1.5) mg/dL AST 42 H (12-35) U/L ALT 30 (4-50) U/L Alkaline Phosphatase 81 (40-150) U/L C-Reactive Protein 5.5 H (0.5-1.0) mg/dL Total Protein 7.9 (6.0-8.3) g/dL Albumin 4.3 (3.3-5.0) g/dL Urine Color Yellow (Yellow) Urine Appearance Clear (Clear) Urine pH 6.0 (5.0-8.5) Ur Specific [place] 1.025 (1.000-1.030) Urine Protein 1+ A (Negative) Urine Glucose (UA) Negative (Negative) Urine Ketones Negative (Negative) Urine Blood Negative (Negative) Urine Nitrite Negative (Negative) Urine Bilirubin Negative (Negative) Urine Urobilinogen 1.0 (0.2-1.0) Ur Leukocyte Esterase Negative (Negative) Urine RBC 0-2 (0-2) Urine WBC 0-2 (0-5) Ur Squamous Epith Cells Few (None-Few) Urine Bacteria None (None) Blood Type O Positive Antibody Screen NEGATIVE 07/30/23 Range/Units 14:50 WBC (4.50-11.00) K/uL RBC (4.30-5.90) m/uL Hgb 8.2 L (13.5-17.5) gm/dL Hct (37.0-53.0) % MCV (80-100) fL MCH (26-34) pg MCHC (32-36) gm/dL RDW Coeff of Rossana (11.5-15.5) % Plt Count (140-440) K/uL Neut % (Auto) (42.0-72.0) % Lymph % (Auto) (20-44) % [place] % (Auto) (0.0-11.0) % Eos % (Auto) (0.0-7.0) % Baso % (Auto) (0.0-3.0) % Neut # (Auto) (1.7-7.0) K/uL Lymph # (Auto) (0.90-2.90) K/uL [place] # (Auto) (0.00-0.90) K/UL Eos # (Auto) (0.00-0.50) K/uL Baso # (Auto) (0.00-0.30) K/uL Abs Immat Gran (auto) (0.00-0.30) K/uL Imm/Tot Granulo (auto) % INR (0.91-1.10) APTT (23-33) Seconds Sodium (135-149) mmol/L Potassium (3.6-5.1) mmol/L Chloride (96-114) mmol/L Carbon Dioxide (20-32) mmol/L Anion Gap (7-15) mEq/L BUN (7-30) mg/dL Creatinine (0.5-1.5) mg/dL Estimated Creat Clear Estimated GFR ml/min Glucose (60-115) mg/dL Calcium (8.4-10.6) mg/dL Total Bilirubin (0.1-1.5) mg/dL AST (12-35) U/L ALT (4-50) U/L Alkaline Phosphatase (40-150) U/L C-Reactive Protein (0.5-1.0) mg/dL Total Protein (6.0-8.3) g/dL Albumin (3.3-5.0) g/dL Urine Color (Yellow) Urine Appearance (Clear) Urine pH (5.0-8.5) Ur Specific [place] (1.000-1.030) Urine Protein (Negative) Urine Glucose (UA) (Negative) Urine Ketones (Negative) Urine Blood (Negative) Urine Nitrite (Negative) Urine Bilirubin (Negative) Urine Urobilinogen (0.2-1.0) Ur Leukocyte Esterase (Negative) Urine RBC (0-2) Urine WBC (0-5) Ur Squamous Epith Cells (None-Few) Urine Bacteria (None) Blood Type Antibody Screen Imaging Data CT pelvis: Attestation: I have reviewed the pertinent imaging results. Radiologist's impression: Patient: MEGHNA CURIEL Facility:?[facility] Patient ID:?[id number] Site Patient ID:?[id number]. Site :?[id number] Study:?CT Pelvis W/IV ONLY-07/30/2023 11:55:45 AM Ordering Physician:ZAHRA Final Report: EXAM: CT OF THE PELVIS, WITH IV CONTRAST CLINICAL INDICATION: Progressive right buttock pain. Hematoma SI joint surgery 1 month prior. COMPARISON STUDIES: None. TECHNICAL: Enhanced CT of the pelvis with axial images. Sagittal oblique and coronal oblique reformatted images were created. Contrast: Isovue 370, 89 mL. FINDINGS: OSSEOUS STRUCTURES: No acute fractures are evident. Partial visualization of a chronic fracture in the posterior process of L3. Multiple benign islands. No evidence for chronic avascular necrosis. OTHER JOINT SPACES: Right Hip: No effusion. Mild narrowing and hypertrophic change. Left Hip: No effusion. Mild narrowing and hypertrophic change. SI Joints: Right SI joint fusion. No hardware fracture or lucency adjacent to the fixation. Moderate degenerative changes in the left SI joint. Lumbar Spine: Degenerative changes in the lower lumbar spine. SOFT TISSUES MUSCLES AND TENDONS: There is a large hematoma extending from the right greater sciatic notch laterally into the right gluteal region displacing the gluteus medius and kirsten musculature as well as the piriformis. The hematoma measures 16 x 13 x 10 cm in size. There is a mixture of decreased and increased density within the hematoma. The majority of the hematoma demonstrates increased density centrally. Findings are consistent with an acute to subacute component of the hematoma. The superior gluteal artery abuts the medial margin of the hematoma. However no arterial extravasation is identified. No retracted tendon tear. No muscle atrophy. INTRAPELVIC CONTENTS: Trace free fluid in the pelvis. The free fluid does not appear high density to suggest hemorrhage. Zuluaga catheter in the bladder. Postoperative changes in the lower anterior abdominal wall. NEUROVASCULAR STRUCTURES: No abnormality of the neurovascular structures. IMPRESSION: 1. Large hematoma in the right gluteal region, the majority of which appears acute. No arterial extravasation from the adjacent superior gluteal artery. 2. Trace free fluid in the pelvis. 3. Internal fixation of the right SI joint. 4. Degenerative changes in the left SI joint and both hips. 5. Degenerative changes lower lumbar spine. 6. Partially visualized chronic fracture of the posterior process of L3. Please note that all CT scans at this facility use dose modulation, iterative reconstruction, and/or weight-based dosing when appropriate to reduce radiation dose to as low as reasonably achievable. Dictated by Jaden Aguilera MD @ 07/30/2023 12:25:28 PM (Electronic Signature) Discharge Plan Discharge Clinical Impression: Status post fusion of sacroiliac joint, Hematoma of right buttock, Acute blood loss anemia, Acute urinary retention Patient Disposition: Admitted As Observation
--- NOTE | 2023-07-30 10:01 | CT_ITS ---
Patient: MEGHNA CURIEL Facility:?[facility] Patient ID:?[id number] Site Patient ID:?[id number]. Site :?[id number] Study:?CT-Pelvis W/IV ONLY-07/30/2023 11:55:45 AM Ordering Physician:ZAHRA Final Report: EXAM: CT OF THE PELVIS, WITH IV CONTRAST CLINICAL INDICATION: Progressive right buttock pain. Hematoma SI joint surgery 1 month prior. COMPARISON STUDIES: None. TECHNICAL: Enhanced CT of the pelvis with axial images. Sagittal oblique and coronal oblique reformatted images were created. Contrast: Isovue 370, 89 mL. FINDINGS: OSSEOUS STRUCTURES: No acute fractures are evident. Partial visualization of a chronic fracture in the posterior process of L3. Multiple benign islands. No evidence for chronic avascular necrosis. OTHER JOINT SPACES: Right Hip: No effusion. Mild narrowing and hypertrophic change. Left Hip: No effusion. Mild narrowing and hypertrophic change. SI Joints: Right SI joint fusion. No hardware fracture or lucency adjacent to the fixation. Moderate degenerative changes in the left SI joint. Lumbar Spine: Degenerative changes in the lower lumbar spine. SOFT TISSUES MUSCLES AND TENDONS: There is a large hematoma extending from the right greater sciatic notch laterally into the right gluteal region displacing the gluteus medius and kirsten musculature as well as the piriformis. The hematoma measures 16 x 13 x 10 cm in size. There is a mixture of decreased and increased density within the hematoma. The majority of the hematoma demonstrates increased density centrally. Findings are consistent with an acute to subacute component of the hematoma. The superior gluteal artery abuts the medial margin of the hematoma. However no arterial extravasation is identified. No retracted tendon tear. No muscle atrophy. INTRAPELVIC CONTENTS: Trace free fluid in the pelvis. The free fluid does not appear high density to suggest hemorrhage. Zuluaga catheter in the bladder. Postoperative changes in the lower anterior abdominal wall. NEUROVASCULAR STRUCTURES: No abnormality of the neurovascular structures. IMPRESSION: 1. Large hematoma in the right gluteal region, the majority of which appears acute. No arterial extravasation from the adjacent superior gluteal artery. 2. Trace free fluid in the pelvis. 3. Internal fixation of the right SI joint. 4. Degenerative changes in the left SI joint and both hips. 5. Degenerative changes lower lumbar spine. 6. Partially visualized chronic fracture of the posterior process of L3. Please note that all CT scans at this facility use dose modulation, iterative reconstruction, and/or weight-based dosing when appropriate to reduce radiation dose to as low as reasonably achievable. Dictated by Jaden Aguilera MD @ 07/30/2023 12:25:28 PM Signed by:?Jaden Aguilera MD @07/30/2023 12:25:28 PM (Electronic Signature)
[2023-07-30 10:11] LABS: Appearance Urine Clear (Clear); Bilirubin Urine Negative (Negative); Blood Urine Negative (Negative); Color Urine Yellow (Yellow); Glucose Urine Negative (Negative); Ketones Urine Negative (Negative); Leukocyte Esterase Urine Negative (Negative); Nitrite Urine Negative (Negative); Protein Urine 1+ (Negative); Specific Gravity Urine 1.025 (1.000-1.030)
[2023-07-30] MEDS: MORPHINE 4 MG/ML INJ IVP ×2 (10:17→20:04)
[2023-07-30 10:28] LABS: Basophils Absolute Auto 0.02 K/uL (0.00-0.30); Basophils Percent Auto 0.3 % (0.0-3.0); Eosinophils Percent Auto 1.3 % (0.0-7.0); Hematocrit 26.7 % (37.0-53.0); Hemoglobin* 8.5 gm/dL (13.5-17.5); Immature Granulocytes Abs Auto 0.01 K/uL (0.00-0.30); Immature Granulocytes Pct Auto 0.1 %; Lymphocytes Percent Auto 9.1 % (20-44); Mean Corpuscular HGB Conc 32 gm/dL (32-36); Mean Corpuscular Hemoglobin 29 pg (26-34); Mean Corpuscular Volume 92 fL (80-100); Monocytes Percent Auto 7.7 % (0.0-11.0); Neutrophils Percent Auto 81.5 % (42.0-72.0); Platelet Count* 240 K/uL (140-440); RDW Coefficient of Variation % 14.3 % (11.5-15.5); Red Blood Count 2.89 m/uL (4.30-5.90); White Blood Count* 7.92 K/uL (4.50-11.00)
[2023-07-30 10:31] LABS: Slide Review Reflex No
[2023-07-30 10:43] LABS: Chloride* 105 mmol/L (96-114)
[2023-07-30 10:44] LABS: Albumin* 4.3 g/dL (3.3-5.0); Sodium* 135 mmol/L (135-149)
[2023-07-30 10:46] LABS: Est. Creatinine Clearance* 71.99; Estimated Glomerular Filt Rate 81 ml/min
[2023-07-30 10:47] LABS: Alanine Aminotransferase* 30 U/L (4-50); Alkaline Phosphatase* 81 U/L (40-150); Anion Gap 6 mEq/L (7-15); Aspartate Amino Transferase* 42 U/L (12-35); Bilirubin Total* 1.2 mg/dL (0.1-1.5); Blood Urea Nitrogen* 21 mg/dL (7-30); Carbon Dioxide* 24 mmol/L (20-32); Glucose* 107 mg/dL (60-115); Total Protein* 7.9 g/dL (6.0-8.3)
[2023-07-30 10:47] LABS: RBC Urine 0-2 (0-2)
[2023-07-30 10:48] LABS: Squamous Epithelial Cell Urine Few (None-Few); WBC Urine 0-2 (0-5)
[2023-07-30 10:48] LABS: Calcium* 9.5 mg/dL (8.4-10.6)
[2023-07-30 10:49] LABS: INR 1.07 (0.91-1.10); Prothrombin Time 14.6 Seconds
[2023-07-30 10:50] LABS: C Reactive Protein* 5.5 mg/dL (0.5-1.0); Partial Thromboplastin Time* 39 Seconds (23-33)
[2023-07-30 15:02] LABS: Hemoglobin* 8.2 gm/dL (13.5-17.5)
[2023-07-30] MEDS: OXYCODONE 5 MG TABLET PO ×2 (15:13→22:13)
--- NOTE | 2023-07-30 19:22 | P.IMHP_ITS ---
Hospitalist- H&P: HPI History of Present Illness Date Seen: 07/30/23 Chief complaint: weakness- cant pee Narrative: Mihir Jacobo is a 67 year old male who presented to the ER with his this afternoon for severe right buttock pain, in addition to inability to urinate. He underwent an SI joint fusion on 06/29/23 at [facility] with Dr. Dunbar. Was feeling okay until 07/05 (pain worsened at that time), was seen in our ER and found to have a hematoma. He's been seeing his Ortho team in f/u with imaging and has been holding his aspirin. Pain worsened again over the last 24 hours and Solo continues to have pain down his entire right leg, starting at buttock (site of surgery). He is not having any relief from home medications and is unable to sleep. No fall or trauma since surgery. No known bleeding disorders, but has been referred to Hematology given previous postoperative bleeding. Regarding the urinary retention, known history of BPH, on Flomax. Has not been able to urinate since last night. Normal sensation. ER Course and findings: - Hgb 8.5, repeat after 6 hours 8.2 - no hypotension or tachycardia - ER physician attempted to reach patient's Orthopedic Surgery team at [facility], did not receive a call back during patient's stay - CT reveals persistent/enlarging hematoma; per formal radiology read: There is a large hematoma extending from the right greater sciatic notch laterally into the right gluteal region displacing the gluteus medius and kirsten musculature as well as the piriformis. The hematoma measures 16 x 13 x 10 cm in size. There is a mixture of decreased and increased density within the hematoma. The majority of the hematoma demonstrates increased density centrally. Findings are consistent with an acute to subacute component of the hematoma. The superior gluteal artery abuts the medial margin of the hematoma. However no arterial extravasation is identified. No retracted tendon tear. No muscle atrophy. Given concern for acute bleeding, in addition to uncontrolled pain, patient admitted to the hospital for monitoring and IV pain medication. Histories updated below. PCP is Dr. Chiu locally, Dr. Mario is [facility]. Review of Systems Status of ROS: Reports: 10 or more systems reviewed and unremarkable except as noted in History and below Narrative: - no chest pain or dyspnea - besides RLE bruising, no other skin concerns - no saddle anesthesia - no nausea or vomiting PFSH PFSH Medical History (Updated 07/30/23 @ 20:44 by Samantha Rosario MD) Cardiomyopathy ?I42.9 - Cardiomyopathy, unspecified (ICD-10) Nephrolithiasis ?N20.0 - Calculus of kidney (ICD-10) Hip hematoma, right ?S70.01XA - Contusion of right hip, initial encounter (ICD-10) Surgical History (Updated 07/30/23 @ 20:39 by Samantha Rosario MD) H/O coronary angiogram ?Z98.890 - Other specified postprocedural states (ICD-10) Hx of appendectomy ?Z90.49 - Acquired absence of other specified parts of digestive tract (ICD- 10) H/O inguinal hernia repair ?Z98.890 - Other specified postprocedural states (ICD-10) ?Z87.19 - Personal history of other diseases of the digestive system (ICD-10) H/O laminectomy ?Z98.890 - Other specified postprocedural states (ICD-10) History of knee replacement ?Z96.659 - Presence of unspecified artificial knee joint (ICD-10) H/O mitral valve repair ?Z98.890 - Other specified postprocedural states (ICD-10) History of hip surgery ?Z98.890 - Other specified postprocedural states (ICD-10) History of sinus surgery ?Z98.890 - Other specified postprocedural states (ICD-10) Social History What is your current living situation?: I presently have a place to live Problems where you live: no known problems Problems where you live details: na In the past 12 months, utilities in danger of being shut off: no In past 12 months, lack of transportation kept you from medical appts, meetings, work, or getting things needed for daily living: no In the past 12 mos, have been you worried that your food would run out before you had money to buy more?: never true In the past 12 mos, the food you bought just didn't last and you didn't have money to buy more?: never true Smoking Status: Never smoker Do you use any of these nicotine containing products: None Second hand tobacco smoke exposure: No How often do you have a drink containing alcohol: never How many standard drinks containing alcohol do you have on a typical day: 1 or 2 How often do you have six or more drinks on one occasion: Never AUDIT-C Alcohol total score: 0 Non-prescribed substance use: denies use Caffeine: No How often does anyone, including family, friends and others, physically hurt you : never How often does anyone, including family, friends and others, insult or talk down to you: never How often does anyone, including family, friends and others, threaten you with harm: never How often does anyone, including family, friends and others, scream or curse at you: never service: No Meds Home Medications and Allergies Home Medications Medication Instructions Recorded Confirmed Type carvedilol 12.5 mg tablet 12.5 mg PO BID 04/20/22 07/30/23 History fluticasone propionate 50 1 spray intranasal DAILY 04/20/22 07/30/23 History mcg/actuation nasal spray,suspension rosuvastatin 40 mg tablet 40 mg PO DAILY 04/20/22 07/30/23 History tamsulosin 0.4 mg capsule 0.4 mg PO Q24H 04/20/22 07/30/23 History aspirin 81 mg tablet,delayed 81 mg PO QDAY 01/25/23 07/30/23 History release (Adult Aspirin Regimen) tadalafil 5 mg tablet (Cialis) 5 mg PO DAILY 01/25/23 07/30/23 History valacyclovir 1 gram tablet 1,000 mg PO DAILY 01/25/23 07/30/23 History (Valtrex) cyclobenzaprine 10 mg tablet 10 mg PO TID 07/05/23 07/30/23 History oxycodone 5 mg tablet 5 mg PO Q4H 07/05/23 07/30/23 History Allergies Allergy/AdvReac Type Severity Reaction Status Date / Time guaifenesin [From Mucinex] Allergy Mild Verified 07/30/23 09:38 cephalexin [From Keflex] Allergy Rash Verified 07/30/23 09:38 doxycycline Allergy Rash Verified 07/30/23 09:38 Exam Narrative: Exam Narrative: GEN: Alert and answering questions appropriately, appears uncomfortable but nontoxic HEENT: EOMIs bilaterally, no scleral icterus CV: RRR, No concerning murmurs R: LCTA bilaterally without concerning wheezing, air movement is adequate Ext: wwp, no concerning edema of right thigh or calf, negative Lowell's sign Skin: Bruising over right buttock and right posterior thigh Neuro: Nonfocal Psych: Appropriate Const: Vital Signs, click to edit/add: Vital Signs - 24 hr 07/30/23 09:31 07/30/23 10:01 07/30/23 11:15 Temperature 97.9 F Pulse Rate [Pulse Oximeter] 80 78 Respiratory Rate 18 16 Blood Pressure [Le ft Arm] Blood Pressure [Ri ght Upper Arm] 98/62 130/68 Pulse Oximetry 97 98 93 Oxygen Delivery Me thod Room Air Room Air 07/30/23 12:15 07/30/23 14:35 07/30/23 15:15 Temperature Pulse Rate [Pulse Oximeter] 84 76 79 Respiratory Rate 16 16 16 Blood Pressure [Le ft Arm] Blood Pressure [Ri ght Upper Arm] 121/62 117/69 116/68 Pulse Oximetry 98 97 98 Oxygen Delivery Me thod Room Air Room Air Room Air 07/30/23 16:15 07/30/23 18:20 Temperature 99.6 F Pulse Rate [Pulse Oximeter] 76 80 Respiratory Rate 16 16 Blood Pressure [Le ft Arm] 119/64 Blood Pressure [Ri ght Upper Arm] 119/67 Pulse Oximetry 91 98 Oxygen Delivery Me thod Room Air Room Air Hospitalist - H&P: Result Labs Labs: Short CBC 07/30/23 07/30/23 Range/Units 10:12 14:50 WBC 7.92 (4.50-11.00) K/uL Hgb 8.5 L 8.2 L (13.5-17.5) gm/dL Hct 26.7 L (37.0-53.0) % Plt Count 240 (140-440) K/uL BMP 07/30/23 10:12 Sodium 135 Potassium 4.0 Chloride 105 Carbon Dioxide 24 BUN 21 Creatinine 1.0 Glucose 107 Calcium 9.5 Liver Function 07/30/23 Range/Units 10:12 Total Bilirubin 1.2 (0.1-1.5) mg/dL AST 42 H (12-35) U/L ALT 30 (4-50) U/L Alkaline Phosphatase 81 (40-150) U/L Albumin 4.3 (3.3-5.0) g/dL Urine 07/30/23 Range/Units 10:00 Urine Color Yellow (Yellow) Urine Appearance Clear (Clear) Urine pH 6.0 (5.0-8.5) Ur Specific Sterling 1.025 (1.000-1.030) Urine Protein 1+ A (Negative) Urine Glucose (UA) Negative (Negative) Assessment and Plan Assessment and plan (1) Hematoma of right buttock: Problem comment: - imaging on 07/29 exhibits larger hematoma with concern of active bleeding - serial Hgb, transfuse <8 given cardiomyopathy, hold blood thinners - if bleeding worsens, may need transfer to tertiary care center for IR Status: Acute (2) Acute blood loss anemia: Problem comment: - postoperative, follow Hgb Status: Acute (3) Acute urinary retention: Problem comment: - known BPH with LUTS, likely flared with addition of narcotics to medical regimen - no concern for acute neurologic process at this time Status: Acute (4) Status post fusion of sacroiliac joint: Problem comment: - Dr. Dunbar, 06/29/23, [facility] Status: Acute (5) Cardiomyopathy: Problem comment: - follows with Dr. Mario of Cardiology, on Carvedilol and ASA as outpatient (holding ASA since surgery/hematoma) - [facility]: 1. Normal LV size, mildly increased wall thickness, low normal global systolic function with an estimated EF of 50 - 55%. 2. Moderately enlarged left atrium. 3. The aortic valve is sclerotic and trileaflet, no stenosis and trivial r egurgitation. 4. The mitral valve is repaired with an annuloplasty ring. Mean gradient 2 mmHg. Trace MR. 5. The ascending aorta is dilated with a maximal diameter of 4.2 cm. 6. The aortic sinus is dilated with a maximal diameter of 4.6 cm. 7. compared to echo report 07/2021: aortic sinus 4.2 cm. Asc aorta 4 cm. Status: Acute Plan - per above - updated at bedside, questions answered
[2023-07-30 21:15] LABS: Hemoglobin* 8.3 gm/dL (13.5-17.5)
[2023-07-30] MEDS: CYCLOBENZAPRINE HCL 10 MG TABLET PO (21:46)
[2023-07-30] MEDS: GABAPENTIN 300 MG CAPSULE PO (21:47)
[2023-07-30] MEDS: carvediloL 6.25 MG TABLET 12.5 MG PO (21:47)
[2023-07-30] MEDS: SODIUM CHLORIDE 0.9 % (FLUSH) 10 ML SYRINGE 5 ML IVF (21:47)
[2023-07-30] MEDS: ROSUVASTATIN CALCIUM 10 MG TABLET 40 MG PO (22:14)
[2023-07-30] MEDS: ACETAMINOPHEN 325 MG TABLET 975 MG PO (22:27)
[2023-07-31] VITALS (9 sets, daily range): BP systolic 101–118; BP diastolic 61–73; PULSE 73–91; RESP 16–18; TEMP 36.5–37.3; O2SAT 93–98
[2023-07-31] MEDS: MORPHINE 4 MG/ML INJ IVP ×2 (00:27→05:34)
[2023-07-31] MEDS: OXYCODONE 5 MG TABLET PO ×7 (03:24→23:32)
[2023-07-31 03:32] LABS: Hemoglobin* 8.2 gm/dL (13.5-17.5)
--- NOTE | 2023-07-31 05:52 | PC.NURSE ---
Addendum entered by Terese Lundberg RN 07/31/23 06:13: PRN Tylenol given for temp of 100.0.? Original Note: Patient pleasant, alert and oriented. Remained in bed this shift. Given PRN Morphine IVP and PO Oxycodone for pain. Zuluaga patent and draining clear yellow urine. remained at bedside through night.?
[2023-07-31] MEDS: ACETAMINOPHEN 325 MG TABLET 975 MG PO ×2 (08:01→16:16)
[2023-07-31 09:12] LABS: Hemoglobin* 8.2 gm/dL (13.5-17.5)
[2023-07-31] MEDS: CYCLOBENZAPRINE HCL 10 MG TABLET PO ×3 (09:35→20:28)
[2023-07-31] MEDS: carvediloL 6.25 MG TABLET 12.5 MG PO ×2 (09:35→20:27)
[2023-07-31] MEDS: GABAPENTIN 300 MG CAPSULE PO ×2 (09:36→20:28)
[2023-07-31] MEDS: TAMSULOSIN HCL 0.4 MG CAPSULE 0.8 MG PO (09:36)
[2023-07-31] MEDS: SENNOSIDES/DOCUSATE TABLET 1 TAB PO (09:37)
[2023-07-31] MEDS: FLUTICASONE PROPIONATE NASAL 1 SPRAY NOSTRIL-B (09:37)
[2023-07-31] MEDS: PSYLLIUM HUSK (WITH SUGAR) 12 GM PACKET PO (09:37)
[2023-07-31] MEDS: SODIUM CHLORIDE 0.9 % (FLUSH) 10 ML SYRINGE 5 ML IVF ×2 (09:38→20:29)
--- NOTE | 2023-07-31 10:42 | P.IMPN_ITS ---
Progress Note: A&P Assessment and plan (1) Acute blood loss anemia: Problem details: - postoperative, Hgb stable overnight. Recheck in the morning. Status: Acute (2) Hematoma of right buttock: Problem details: - imaging on 07/29 exhibits larger hematoma with concern of active bleeding - serial Hgb, transfuse if <8 given cardiomyopathy, hold blood thinners - if bleeding worsens, may need transfer to tertiary care center for IR - 07/30 Bleeding now stable, pain control challenging: increase oxycodone dose and frequency. I have spoken with his nurse and asked that morphine IV be used only for breakthrough pain. I spoke with patient and about transitioning to oral medications only in anticipation of discharge in the next day or so. - Mobility is also an issue. This may improve with pain control, but if it doesn't, he may need SNF for rehab. Status: Acute (3) Status post fusion of sacroiliac joint: Problem details: - Dr. Dunbar, 06/29/23, [facility] - 07/[address] Dunbar again today and have left message with his clinic. Status: Acute (4) Acute urinary retention: Problem details: - known BPH with LUTS, likely flared with addition of narcotics to medical regimen - no concern for acute neurologic process at this time - Has cook, will need outpatient urology f/u in a week. Status: Acute (5) Cardiomyopathy: Problem details: - follows with Dr. Mario of Cardiology, on Carvedilol and ASA as outpatient (holding ASA since surgery/hematoma) - Last TTE in [facility] chart from 04/2023: 1. Normal LV size, mildly increased wall thickness, low normal global systolic function with an estimated EF of 50 - 55%. 2. Moderately enlarged left atrium. 3. The aortic valve is sclerotic and trileaflet, no stenosis and trivial regurgitation. 4. The mitral valve is repaired with an annuloplasty ring. Mean gradient 2 mmHg. Trace MR. 5. The ascending aorta is dilated with a maximal diameter of 4.2 cm. 6. The aortic sinus is dilated with a maximal diameter of 4.6 cm. 7. compared to echo report 07/2021: aortic sinus 4.2 cm. Asc aorta 4 cm. Status: Chronic Plan 67 y/o with a large right buttock hematoma after sacroiliac joint fusion. Although there was concern yesterday for active bleeding into the hematoma based on CT scan, his hemoglobin has remained stable overnight. I am attempting to get a hold of his orthopedic surgeon today to make him aware. At this time he is having difficulty with pain control and mobility. I am adjusting oxycodone and will continue PT and OT. He may need SNF for rehab. Subjective Time Seen by Provider: 09:51 Date Seen: 07/31/23 Interval history: Solo has been in a lot of pain overnight and is getting morphine IV every 2-3 hours in addition to oral oxycodone every 4 hours. He worked with therapy this morning and was only able to make it to the end of the bed. His , Lisa, is in the room with him and tells me that he used to be able to take a shower and get around at home after the surgery, but in the last few days his ability to ambulate has really suffered. We discussed the possibility of rehab and they we re okay with that if needed. We also discussed blood transfusion and when that would be indicated. I noted that his hemoglobins have remained stable. Solo feels really sleepy today, but denies any chest pain, shortness a breath, dizziness or lightheadedness. He has a urinary catheter in place and has no complaints related to that. Exam Narrative: Exam Narrative: General: No acute distress. Sleepy, arousable, able to stay awake for conversation, oriented x3. No pallor. No jaundice. Oropharynx: Clear. Mucous membranes dry. Cardiovascular: Regular rate and rhythm. No murmurs, gallops, or rubs. Respiratory: Clear to auscultation bilaterally. No wheezes or crackles. Abdomen: Bowel sounds present. Soft, nondistended, nontender. Skin: Healing wound over right buttock without any overlying tenderness, warmth, erythema, or induration. There is no bleeding or drainage from the wound. Some firmness just inferior to the wound, but without overlying bruising at that site. Ecchymosis is present over the right posterior thigh down to just above the knee. Const: Vital Signs, click to edit/add: Vital Signs - 24 hr 07/30/23 11:15 07/30/23 12:15 07/30/23 14:35 Temperature Pulse Rate [Pulse Oximeter] 78 84 76 Respiratory Rate 16 16 16 Blood Pressure [Le ft Arm] Blood Pressure [Ri ght Arm] Blood Pressure [Ri ght Upper Arm] 130/68 121/62 117/69 Pulse Oximetry 93 98 97 Oxygen Delivery Me thod Room Air Room Air Room Air 07/30/23 15:15 07/30/23 16:15 07/30/23 18:20 Temperature 99.6 F Pulse Rate [Pulse Oximeter] 79 76 80 Respiratory Rate 16 16 16 Blood Pressure [Le ft Arm] 119/64 Blood Pressure [Ri ght Arm] Blood Pressure [Ri ght Upper Arm] 116/68 119/67 Pulse Oximetry 98 91 98 Oxygen Delivery Me thod Room Air Room Air Room Air 07/30/23 22:27 07/30/23 23:00 07/31/23 00:26 Temperature 100.0 F H 99.9 F H 98.3 F Pulse Rate [Pulse Oximeter] 85 Respiratory Rate 18 Blood Pressure [Le ft Arm] 112/67 Blood Pressure [Ri ght Arm] Blood Pressure [Ri ght Upper Arm] Pulse Oximetry 94 Oxygen Delivery Me thod Room Air 07/31/23 03:00 07/31/23 07:00 07/31/23 07:00 Temperature 98.5 F 99.2 F Pulse Rate [Pulse Oximeter] 78 73 73 Respiratory Rate 16 16 16 Blood Pressure [Le ft Arm] 109/73 Blood Pressure [Ri ght Arm] 118/70 Blood Pressure [Ri ght Upper Arm] Pulse Oximetry 97 97 Oxygen Delivery Me thod Room Air Room Air Labs Labs: Laboratory Results - last 24 hr 07/30/23 07/30/23 07/30/23 10:00 10:12 10:45 Hgb INR 1.07 APTT 39 H Sodium 135 Potassium 4.0 Chloride 105 Carbon Dioxide 24 Anion Gap 6 L BUN 21 Creatinine 1.0 Estimated Creat Clear 71.99 Estimated GFR 81 Glucose 107 Calcium 9.5 Total Bilirubin 1.2 AST 42 H ALT 30 Alkaline Phosphatase 81 C-Reactive Protein 5.5 H Total Protein 7.9 Albumin 4.3 Urine RBC 0-2 Urine WBC 0-2 Ur Squamous Epith Cells Few Urine Bacteria None Blood Type O Positive Antibody Screen NEGATIVE 07/30/23 07/30/23 07/31/23 14:50 20:59 03:28 Hgb 8.2 L 8.3 L 8.2 L INR APTT Sodium Potassium Chloride Carbon Dioxide Anion Gap BUN Creatinine Estimated Creat Clear Estimated GFR Glucose Calcium Total Bilirubin AST ALT Alkaline Phosphatase C-Reactive Protein Total Protein Albumin Urine RBC Urine WBC Ur Squamous Epith Cells Urine Bacteria Blood Type Antibody Screen 07/31/23 09:03 Hgb 8.2 L INR APTT Sodium Potassium Chloride Carbon Dioxide Anion Gap BUN Creatinine Estimated Creat Clear Estimated GFR Glucose Calcium Total Bilirubin AST ALT Alkaline Phosphatase C-Reactive Protein Total Protein Albumin Urine RBC Urine WBC Ur Squamous Epith Cells Urine Bacteria Blood Type Antibody Screen Study: CT-Pelvis W/IV ONLY-07/30/2023 11:55:45 AM Ordering Physician: HIEN Final Report: EXAM: CT OF THE PELVIS, WITH IV CONTRAST CLINICAL INDICATION: Progressive right buttock pain. Hematoma SI joint surgery 1 month prior. COMPARISON STUDIES: None. TECHNICAL: Enhanced CT of the pelvis with axial images. Sagittal oblique and coronal obli que reformatted images were created. Contrast: Isovue 370, 89 mL. FINDINGS: OSSEOUS STRUCTURES: No acute fractures are evident. Partial visualization of a chronic fracture in the posterior process of L3. Multiple benign islands. No evidence for chronic avascular necrosis. OTHER JOINT SPACES: Right Hip: No effusion. Mild narrowing and hypertrophic change. Left Hip: No effusion. Mild narrowing and hypertrophic change. SI Joints: Right SI joint fusion. No hardware fracture or lucency adjacent to the fixation. Moderate degenerative changes in the left SI joint. Lumbar Spine: Degenerative changes in the lower lumbar spine. SOFT TISSUES MUSCLES AND TENDONS: There is a large hematoma extending from the right greater sciatic notch laterally into the right gluteal region displacing the gluteus medius and kirsten musculature as well as the piriformis. The hematoma measures 16 x 13 x 10 cm in size. There is a mixture of decreased and increased density within the hematoma. The majority of the hematoma demonstrates increased density centrally. Findings are consistent with an acute to subacute component of the hematoma. The superior gluteal artery abuts the medial margin of the hematoma. However no arterial extravasation is identified. No retracted tendon tear. No muscle atrophy. INTRAPELVIC CONTENTS: Trace free fluid in the pelvis. The free fluid does not appear high density to suggest hemorrhage. Cook catheter in the bladder. Postoperative changes in the lower anterior abdominal wall. NEUROVASCULAR STRUCTURES: No abnormality of the neurovascular structures. IMPRESSION: 1. Large hematoma in the right gluteal region, the majority of which appears acute. No arterial extravasation from the adjacent superior gluteal artery. 2. Trace free fluid in the pelvis. 3. Internal fixation of the right SI joint. 4. Degenerative changes in the left SI joint and both hips. 5. Degenerative changes lower lumbar spine. 6. Partially visualized chronic fracture of the posterior process of L3. Please note that all CT scans at this facility use dose modulation, iterative reconstruction, and/or weight-based dosing when appropriate to reduce radiation dose to as low as reasonably achievable. Dictated by Jaden Aguilera MD @ 07/30/2023 12:25:28 PM Signed by: Jaden Aguilera MD @07/30/2023 12:25:28 PM (Electronic Signature) Dictated By: Jaden Aguilera MD Signed By: 07/30/23 1314 DD/ 1225 TD/TT: 07/30/23 1313
--- NOTE | 2023-07-31 18:36 | PC.NURSE ---
End of Shift: Patient pleasant and cooperative. Temp max 99.1. Rating pain in right buttock/hip 3-5/10 and PRN Oxycodone given x3. Ice pack also applied as needed. Up to chair and walking in room with SBA and walker. Tolerating regular diet with no nausea. Zuluaga patent.
[2023-07-31] MEDS: ROSUVASTATIN CALCIUM 10 MG TABLET 40 MG PO (20:29)
[2023-08-01] VITALS (15 sets, daily range): BP systolic 95–126; BP diastolic 57–72; PULSE 68–91; RESP 16–20; TEMP 36.7–37.6; O2SAT 93–96
[2023-08-01] MEDS: MORPHINE 4 MG/ML INJ IVP (00:35)
[2023-08-01] MEDS: SODIUM CHLORIDE 0.9 % (FLUSH) 10 ML SYRINGE 5 ML IVF ×3 (00:36→21:40)
[2023-08-01] MEDS: OXYCODONE 5 MG TABLET PO ×3 (03:15→19:15)
--- NOTE | 2023-08-01 06:35 | PC.NURSE ---
End of shift note: Pt noted to be alert & oriented x 4 and able to make needs known. He transfers/ambulates with SBA using FWW. VSS and pt has been afebrile. No N/V throughout the shift. Pt rated pain to R buttock/hip highest rating of 6/10 this shift after PRN Oxycodone, rest, repositioning and ice provided. PRN Morphine was then given to treat ongoing pain after PRN Oxycodone. IV to L FA patent and SL. chose to stay the night with pt and slept in recliner in pt?s room. Zuluaga catheter remains in place. Knife Machine Operator has been providing education about pain control interventions throughout the shift as pt continues to request for frequent PRN pain medication- last time requesting 10 mg Oxycodone for what he had just reported as 2/10 pain when asked with vital signs check. Pt has also not had a BM since 07/29/23 though refused PRN Miralax when caption writer discussed this with him. Pt refused SCDs despite encouragement and education.
[2023-08-01 07:09] LABS: Basophils Absolute Auto 0.02 K/uL (0.00-0.30); Basophils Percent Auto 0.3 % (0.0-3.0); Eosinophils Absolute Auto 0.07 K/uL (0.00-0.50); Eosinophils Percent Auto 0.9 % (0.0-7.0); Hematocrit 25.6 % (37.0-53.0); Immature Granulocytes Abs Auto 0.01 K/uL (0.00-0.30); Immature Granulocytes Pct Auto 0.1 %; Lymphocytes Percent Auto 12.1 % (20-44); Mean Corpuscular HGB Conc 31 gm/dL (32-36); Mean Corpuscular Hemoglobin 29 pg (26-34); Mean Corpuscular Volume 93 fL (80-100); Monocytes Percent Auto 9.9 % (0.0-11.0); Neutrophils Percent Auto 76.7 % (42.0-72.0); Platelet Count* 261 K/uL (140-440); RDW Coefficient of Variation % 14.6 % (11.5-15.5); Red Blood Count 2.75 m/uL (4.30-5.90); White Blood Count* 7.75 K/uL (4.50-11.00)
[2023-08-01 07:24] LABS: Slide Review Reflex No
[2023-08-01 07:40] LABS: C Reactive Protein* 13.4 mg/dL (0.5-1.0)
[2023-08-01] MEDS: ACETAMINOPHEN 325 MG TABLET 975 MG PO (09:09)
[2023-08-01] MEDS: GABAPENTIN 300 MG CAPSULE PO ×2 (09:20→21:39)
[2023-08-01] MEDS: CYCLOBENZAPRINE HCL 10 MG TABLET PO ×3 (09:20→21:38)
[2023-08-01] MEDS: SENNOSIDES/DOCUSATE TABLET 1 TAB PO (09:26)
[2023-08-01] MEDS: PSYLLIUM HUSK (WITH SUGAR) 12 GM PACKET PO (09:26)
[2023-08-01] MEDS: carvediloL 6.25 MG TABLET 12.5 MG PO ×2 (09:26→21:40)
[2023-08-01] MEDS: TAMSULOSIN HCL 0.4 MG CAPSULE 0.8 MG PO (09:27)
[2023-08-01] MEDS: polyethylene glycoL 3350 17 GM PACK PO (09:27)
[2023-08-01 12:16] LABS: Hemoglobin* 7.8 gm/dL (13.5-17.5)
--- NOTE | 2023-08-01 12:36 | PM.IMPN1 ---
Progress Note: A&P Assessment and plan (1) Acute blood loss anemia: Problem details: - postoperative, Hgb trending down slightly, possibly just drift, but he is now less than 8 this afternoon, so I will transfuse and recheck later tonight and again in the morning. Perhaps will be able to get a hold of his ortho team tomorrow, Wednesday. I do not think he needs to urgently transfer today. Status: Acute (2) Hematoma of right buttock: Problem details: - imaging on 07/29 exhibits larger hematoma with concern of active bleeding - serial Hgb, transfuse if <8 given cardiomyopathy, hold blood thinners - if bleeding worsens, may need transfer to tertiary care center for IR - 07/30 Bleeding now stable, pain control challenging: increase oxycodone dose and frequency. I have spoken with his nurse and asked that morphine IV be used only for breakthrough pain. I spoke with patient and about transitioning to oral medications only in anticipation of discharge in the next day or so. - Mobility is also an issue. This is improving with better pain control, and it looks like he will likely be able to go home when medically stable. Status: Acute (3) Status post fusion of sacroiliac joint: Problem details: - Dr. Dunbar, 06/29/23, [facility] - 07/[address] Dunbar again today and have left message with his clinic. Status: Acute (4) Acute urinary retention: Problem details: - known BPH with LUTS, likely flared with addition of narcotics to medical regimen - no concern for acute neurologic process at this time - Has cook, will need outpatient urology f/u in a week. Status: Acute (5) Cardiomyopathy: Problem details: - follows with Dr. Mario of Cardiology, on Carvedilol and ASA as outpatient (holding ASA since surgery/hematoma) - Last TTE in [facility] chart from 04/2023: 1. Normal LV size, mildly increased wall thickness, low normal global systolic function with an estimated EF of 50 - 55%. 2. Moderately enlarged left atrium. 3. The aortic valve is sclerotic and trileaflet, no stenosis and trivial regurgitation. 4. The mitral valve is repaired with an annuloplasty ring. Mean gradient 2 mmHg. Trace MR. 5. The ascending aorta is dilated with a maximal diameter of 4.2 cm. 6. The aortic sinus is dilated with a maximal diameter of 4.6 cm. 7. compared to echo report 07/2021: aortic sinus 4.2 cm. Asc aorta 4 cm. Status: Chronic Plan 67 y/o with a large right buttock hematoma after sacroiliac joint fusion. Although there was concern 07/30/23 for active bleeding into the hematoma based on CT scan, his hemoglobin initially remains stable, but did drift down overnight and is now less than 8, so I will transfuse him 1 unit of packed red blood cells and recheck. Is a very slight drift, so it is not clear that he is actually bleeding, but does have a history of coronary artery disease which is why I am favoring giving him a unit of blood now. We have attempted several times to get a hold have his orthopedic surgeon, but have not yet been successful. Pain control is better now that he is on more oral medication, but he is using this every 3 hours and is very painful if he gets behind. I will try scheduling acetaminophen every 6 hours today, which may be helpful as well. Avoid NSAIDs due to concern of bleeding. Continue nutritional supplementation t.i.d.. Subjective Time Seen by Provider: 07:30 Date Seen: 08/01/23 Interval history: Solo was feeling well when I saw him this morning, but shortly after I left the room, he had a lot of pain in his right buttock/leg. Overall, he and his note that his pain has been more well controlled with oxycodone. He has been using 10 mg every 3 hours and only had 1 dose of IV morphine in the last 24 hours. They both note that he is moving a little bit better today and is appetite is little better, too. He has not had a bowel movement since the . He had declined MiraLax yesterday, but today his notes that he takes it at home and he was agreeable to try it here. We discussed use of senna and MiraLax and that I would like him to have a good bowel movement every day. I noted that narcotics can cause constipation and that we needed to keep on top of a bowel regimen while he is on narcotics. Exam Narrative: Exam Narrative: General: No acute distress. Awake, alert, oriented x3. No pallor. No jaundice. Cardiovascular: Regular rate and rhythm. No murmurs, gallops, or rubs. Respiratory: Clear to auscultation bilaterally. No wheezes or crackles. Abdomen: Bowel sounds present. Soft, nondistended, nontender. Skin: Healing wound over right buttock without any overlying tenderness, warmth, erythema, or induration. There is no bleeding or drainage from the wound. Some firmness just inferior to the wound, but without overlying bruising at that site. Ecchymosis over the right posterior thigh down to just above the knee is a little bit better than yesterday. Const: Vital Signs, click to edit/add: Vital Signs - 24 hr 07/31/23 15:00 07/31/23 15:00 07/31/23 15:00 Temperature 98.4 F Pulse Rate [Pulse Oximeter] 76 76 Respiratory Rate 18 18 Blood Pressure [Le ft Arm] Blood Pressure [Ri ght Arm] 107/63 Pulse Oximetry 98 98 Oxygen Delivery Me thod Room Air 07/31/23 20:34 07/31/23 23:00 07/31/23 23:35 Temperature 97.7 F 99.2 F Pulse Rate [Pulse Oximeter] 89 91 91 Respiratory Rate 18 18 18 Blood Pressure [Le ft Arm] Blood Pressure [Ri ght Arm] 118/61 115/67 Pulse Oximetry 96 93 Oxygen Delivery Me thod Room Air Room Air 07/31/23 23:44 08/01/23 03:10 08/01/23 07:00 Temperature 98.3 F 99.7 F H Pulse Rate [Pulse Oximeter] 88 91 Respiratory Rate 18 16 Blood Pressure [Le ft Arm] 126/72 Blood Pressure [Ri ght Arm] 114/66 Pulse Oximetry 93 94 94 Oxygen Delivery Me thod Room Air Room Air 08/01/23 07:00 08/01/23 11:00 Temperature 99.0 F Pulse Rate [Pulse Oximeter] 73 Respiratory Rate 16 Blood Pressure [Le ft Arm] 113/68 Blood Pressure [Ri ght Arm] Pulse Oximetry 95 93 Oxygen Delivery Me thod Room Air Labs Labs: Laboratory Results - last 24 hr 08/01/23 08/01/23 05:39 11:43 WBC 7.75 RBC 2.75 L Hgb 8.0 L 7.8 L* Hct 25.6 L MCV 93 MCH 29 MCHC 31 L RDW Coeff of [place] 14.6 Plt Count 261 Neut % (Auto) 76.7 H Lymph % (Auto) 12.1 L [place] % (Auto) 9.9 Eos % (Auto) 0.9 Baso % (Auto) 0.3 Neut # (Auto) 5.90 Lymph # (Auto) 0.90 [place] # (Auto) 0.80 Eos # (Auto) 0.07 Baso # (Auto) 0.02 Abs Immat Gran (auto) 0.01 Imm/Tot Granulo (auto) 0.1 C-Reactive Protein 13.4 H
[2023-08-01] MEDS: ACETAMINOPHEN 500 MG TABLET 1000 MG PO ×2 (15:19→21:39)
--- NOTE | 2023-08-01 16:09 | PC.NURSE ---
Addendum entered by Shannan Duong RN 08/01/23 16:29: Hgb 8.0 this AM, 7.8 at noon- 1 unit packed RBC ordered. Original Note: VSS. RA. Pain of 8 in right hip and ankle this AM. Scheduled pain meds and PRN 10 mg of oxy & tylenol given- with relief. Pain managed well rest of shift. Tolerating regular diet, drinking well. Zulu[place] catheter in- 1300 cc clear yellow urine out, catheter cares done. Last BM 07/28- gave senna, miralax, metamucil, and prune juice w/ no success. Up w/ SBA. PIV- SL'd. Will continue to monitor, follow POC, and keep pt and family updated. Shannan Duong RN
[2023-08-01 19:51] LABS: Hemoglobin* 8.8 gm/dL (13.5-17.5)
[2023-08-01] MEDS: ROSUVASTATIN CALCIUM 10 MG TABLET 40 MG PO (21:38)
--- NOTE | 2023-08-01 22:00 | PC.NURSE ---
[id number]: 1 unit PRBC infused and tolerated well. PRN Oxycodone for pain. Encouraged ambulation so patient walk cueva x1. Increased pain w/movement. SBA w/walker. No BM this shift. Denies N/V. Denies dizziness.
[2023-08-02] VITALS (8 sets, daily range): BP systolic 103–127; BP diastolic 61–73; PULSE 80–88; RESP 16–20; TEMP 36.4–37.3; O2SAT 94–97; BMI 24.9
[2023-08-02] MEDS: OXYCODONE 5 MG TABLET PO ×6 (00:18→21:30)
[2023-08-02] MEDS: ACETAMINOPHEN 500 MG TABLET 1000 MG PO ×4 (03:53→22:21)
--- NOTE | 2023-08-02 04:12 | PC.NURSE ---
Pt rested well this night with spouse in room. Pt up once to walk. Pt encouraged to walk. Pain controlled with meds and ice pack applied. Pt voiding large amounts via Z[place]. No N/V. Afebrile. Bruising on right leg remains unchanged as described earlier.
[2023-08-02 06:29] LABS: Basophils Absolute Auto 0.03 K/uL (0.00-0.30); Basophils Percent Auto 0.4 % (0.0-3.0); Eosinophils Absolute Auto 0.06 K/uL (0.00-0.50); Eosinophils Percent Auto 0.7 % (0.0-7.0); Hematocrit 25.7 % (37.0-53.0); Hemoglobin* 8.3 gm/dL (13.5-17.5); Immature Granulocytes Abs Auto 0.01 K/uL (0.00-0.30); Immature Granulocytes Pct Auto 0.1 %; Lymphocytes Percent Auto 10.5 % (20-44); Mean Corpuscular HGB Conc 32 gm/dL (32-36); Mean Corpuscular Hemoglobin 29 pg (26-34); Mean Corpuscular Volume 91 fL (80-100); Monocytes Percent Auto 10.5 % (0.0-11.0); Neutrophils Percent Auto 77.8 % (42.0-72.0); Platelet Count* 241 K/uL (140-440); RDW Coefficient of Variation % 14.5 % (11.5-15.5); Red Blood Count 2.84 m/uL (4.30-5.90); White Blood Count* 8.06 K/uL (4.50-11.00)
[2023-08-02 06:30] LABS: Slide Review Reflex No
[2023-08-02 07:10] LABS: C Reactive Protein* 15.5 mg/dL (0.5-1.0)
[2023-08-02] MEDS: PSYLLIUM HUSK (WITH SUGAR) 12 GM PACKET PO (08:37)
[2023-08-02] MEDS: GABAPENTIN 300 MG CAPSULE PO ×2 (08:38→21:29)
[2023-08-02] MEDS: carvediloL 6.25 MG TABLET 12.5 MG PO ×3 (08:38→21:32)
[2023-08-02] MEDS: CYCLOBENZAPRINE HCL 10 MG TABLET PO ×3 (08:39→21:29)
[2023-08-02] MEDS: SENNOSIDES/DOCUSATE TABLET 1 TAB PO (08:39)
[2023-08-02] MEDS: TAMSULOSIN HCL 0.4 MG CAPSULE 0.8 MG PO (08:39)
[2023-08-02] MEDS: SODIUM CHLORIDE 0.9 % (FLUSH) 10 ML SYRINGE 5 ML IVF ×2 (08:39→21:30)
[2023-08-02] MEDS: FLUTICASONE PROPIONATE NASAL 1 SPRAY NOSTRIL-B (08:44)
[2023-08-02 11:57] LABS: Hemoglobin* 8.5 gm/dL (13.5-17.5)
[2023-08-02] MEDS: polyethylene glycoL 3350 17 GM PACK PO (12:19)
--- NOTE | 2023-08-02 12:59 | P.IMPN_ITS ---
Subjective Time Seen by Provider: 08:15 Date Seen: 08/02/23 Interval history: Solo is doing okay with oral pain medications. He is getting about 3-5 doses of 10 mg oxycodone per day. He is more awake, has a better appetite and ambulating with SBA from his . He Exam Const: Vital Signs, click to edit/add: Vital Signs - 24 hr 08/01/23 16:22 08/01/23 16:26 08/01/23 16:31 Temperature 98.1 F 98.1 F Pulse Rate 80 Pulse Rate [Pulse Oximeter] 70 Respiratory Rate 16 16 Blood Pressure 105/60 Blood Pressure [Le ft Arm] Blood Pressure [Ri ght Arm] 105/60 Pulse Oximetry 95 94 94 Oxygen Delivery Me thod Room Air 08/01/23 16:42 08/01/23 16:43 08/01/23 19:05 Temperature 98.3 F 98.0 F 98.4 F Pulse Rate 79 68 86 Pulse Rate [Pulse Oximeter] Respiratory Rate 16 18 18 Blood Pressure 107/63 95/57 L 104/63 Blood Pressure [Le ft Arm] Blood Pressure [Ri ght Arm] Pulse Oximetry 93 93 96 Oxygen Delivery Me thod 08/01/23 19:37 08/01/23 19:38 08/01/23 21:39 Temperature 98.0 F 98.0 F 98.0 F Pulse Rate 83 Pulse Rate [Pulse Oximeter] 83 Respiratory Rate 20 20 Blood Pressure 115/69 Blood Pressure [Le ft Arm] Blood Pressure [Ri ght Arm] 115/69 Pulse Oximetry 95 95 Oxygen Delivery Me thod Room Air 08/01/23 22:00 08/01/23 22:16 08/01/23 22:17 Temperature 98.5 F Pulse Rate Pulse Rate [Pulse Oximeter] 80 80 Respiratory Rate 16 Blood Pressure Blood Pressure [Le ft Arm] Blood Pressure [Ri ght Arm] 117/66 Pulse Oximetry 96 96 Oxygen Delivery Me thod Room Air 08/02/23 03:51 08/02/23 03:53 08/02/23 07:00 Temperature 97.7 F 97.7 F 98.2 F Pulse Rate Pulse Rate [Pulse Oximeter] 80 85 Respiratory Rate 16 20 Blood Pressure Blood Pressure [Le ft Arm] 122/72 Blood Pressure [Ri ght Arm] 103/62 Pulse Oximetry 95 94 Oxygen Delivery Me thod Room Air Room Air 08/02/23 07:00 08/02/23 07:00 08/02/23 11:00 Temperature 99.2 F Pulse Rate Pulse Rate [Pulse Oximeter] 85 86 Respiratory Rate 20 18 Blood Pressure Blood Pressure [Le ft Arm] 111/68 Blood Pressure [Ri ght Arm] Pulse Oximetry 94 94 Oxygen Delivery Me thod Room Air Labs Labs: Laboratory Results - last 24 hr 07/30/23 08/01/23 08/02/23 10:45 19:46 06:07 WBC 8.06 RBC 2.84 L Hgb 8.8 L 8.3 L Hct 25.7 L MCV 91 MCH 29 MCHC 32 RDW Coeff of [place] 14.5 Plt Count 241 Neut % (Auto) 77.8 H Lymph % (Auto) 10.5 L [place] % (Auto) 10.5 Eos % (Auto) 0.7 Baso % (Auto) 0.4 Neut # (Auto) 6.30 Lymph # (Auto) 0.80 L [place] # (Auto) 0.80 Eos # (Auto) 0.06 Baso # (Auto) 0.03 Abs Immat Gran (auto) 0.01 Imm/Tot Granulo (auto) 0.1 C-Reactive Protein 15.5 H Blood Type O Positive Antibody Screen NEGATIVE Crossmatch ([facility]) See Detail 08/02/23 11:50 WBC RBC Hgb 8.5 L Hct MCV MCH MCHC RDW Coeff of [place] Plt Count Neut % (Auto) Lymph % (Auto) [place] % (Auto) Eos % (Auto) Baso % (Auto) Neut # (Auto) Lymph # (Auto) [place] # (Auto) Eos # (Auto) Baso # (Auto) Abs Immat Gran (auto) Imm/Tot Granulo (auto) C-Reactive Protein Blood Type Antibody Screen Crossmatch ([facility])
--- NOTE | 2023-08-02 13:05 | P.DS_ITS ---
Documented by User: Winifred Osuna MD 08/04/23 07:09 DS: Providers Provider Time Seen by Provider: 08:15 Date Seen: 08/02/23 Date of admission: 08/02/23 10:34 Primary care physician: Wiley Chiu MD Admitting Clinician: Samantha Rosario MD Consults: 07/30/23 20:49 Consult to Physical Therapy [CONS] Routine Comment: Reason(s) for PT Consult:: Evaluate and Treat Any Restrictions?:: Wt Bearing as Tolerated Comment: + large gluteal hematoma postop (SI fusion on 06/29), please evaluate for any adaptive options or contraptions Attending Physician on discharge: Winifred Osuna MD Date of Discharge: 08/02/23 DS: Diagnosis Discharge Diagnosis (1) Cardiomyopathy: Status: Chronic Problem details: - follows with Dr. Mario of Cardiology, on Carvedilol and ASA as outpatient (holding ASA since surgery/hematoma) - Last TTE in [facility] chart from 04/2023: 1. Normal LV size, mildly increased wall thickness, low normal global systolic function with an estimated EF of 50 - 55%. 2. Moderately enlarged left atrium. 3. The aortic valve is sclerotic and trileaflet, no stenosis and trivial regurgitation. 4. The mitral valve is repaired with an annuloplasty ring. Mean gradient 2 mmHg. Trace MR. 5. The ascending aorta is dilated with a maximal diameter of 4.2 cm. 6. The aortic sinus is dilated with a maximal diameter of 4.6 cm. 7. compared to echo report 07/2021: aortic sinus 4.2 cm. Asc aorta 4 cm. (2) Acute urinary retention: Status: Acute Problem details: - known BPH with LUTS, likely flared with addition of narcotics to medical regimen - no concern for acute neurologic process at this time - trial without Zuluaga was successful 08/01 into 08/02. Discharged without Zuluaga (3) Acute blood loss anemia: Status: Acute Problem details: - postoperative, Hgb trending down slightly, possibly just drift, but he is now less than 8 this afternoon. He received 1 u PRBC. - Hgb now stable at 8.3-8.8. (4) Hematoma of right buttock: Status: Acute Problem details: - imaging on 07/29 exhibits larger hematoma with concern of active bleeding - serial Hgb, transfuse if <8 given cardiomyopathy, hold blood thinners - if bleeding worsens, may need transfer to tertiary care center for IR - 07/30 Bleeding now stable, pain control challenging: increase oxycodone dose and frequency. I have spoken with his nurse and asked that morphine IV be used only for breakthrough pain. I spoke with patient and about transitioning to oral medications only in anticipation of discharge in the next day or so. - Mobility is also an issue. This is improving with better pain control, and it looks like he will likely be able to go home when medically stable. (5) Status post fusion of sacroiliac joint: Status: Acute Problem details: - Dr. Dunbar, 06/29/23, [facility] - 07/[address] Dunbar again today and have left message with his clinic. - 08/[address] Dunbar's clinic twice again today and left messages with the sample checker. She was going to try to get a hold of him or his partners, but we have received no response. DS: Summary Hospital Course Hospital Course: 67-year-old male who had an SI joint fusion 06/29/2023 at [facility] with Dr. Dunbar. On 07/05/2023 he had worsening pain and was seen in their emergency department. He was found to have a hematoma. He held his aspirin and had follow-up imaging with his ortho team. On 07/28 he started having even more pain that went down his entire right leg starting at the buttock where the side surgery is. He had no fall or trauma since surgery and no known history of bleeding disorders. But given his previous postoperative bleeding had been referred to Hematology. That appointment is in August. He was admitted to monitor Hgb and for pain control. He has some issues with mobility when he was very painful, but since his pain is come under control those have resolved. His hemoglobin drifted down and since it was lower than 8, I gave him a transfusion of 1 unit packed red blood cells. We have been attempting to get a hold of his primary ortho team at [facility], but have not had any success Wednesday, Wednesday, or today. I spoke with Solo and his about this and they would like me to call our ortho team to discuss with them. At this point since his hemoglobin is stable, it is likely not bleeding or very slow bleed. Anticipate after discussing with Ortho we will likely be able to send him home later today. Please see above under diagnoses for further details. Additionally he had pre urinary retention for which a Zuluaga catheter was placed but this was removed prior to discharge. Time Spent with Patient Time attestation: Total time spent providing and/or coordinating discharge services: Exam Narrative: Exam Narrative: General: No acute distress. Awake, alert, oriented x3. No pallor. No jaundice. Cardiovascular: Regular rate and rhythm. No murmurs, gallops, or rubs. Respiratory: Clear to auscultation bilaterally. No wheezes or crackles. Skin: Healing wound over right buttock without any overlying tenderness, warmth, erythema, or induration. There is no bleeding or drainage from the wound. Some firmness just inferior to the wound, but without overlying bruising at that site. Ecchymosis over the right posterior thigh down to just above the knee is improving. Const: Vital Signs, click to edit/add: Vital Signs - 24 hr 08/01/23 16:22 08/01/23 16:26 08/01/23 16:31 Temperature 98.1 F 98.1 F Pulse Rate 80 Pulse Rate [Pulse Oximeter] 70 Respiratory Rate 16 16 Blood Pressure 105/60 Blood Pressure [Le ft Arm] Blood Pressure [Ri ght Arm] 105/60 Pulse Oximetry 95 94 94 Oxygen Delivery Me thod Room Air 08/01/23 16:42 08/01/23 16:43 08/01/23 19:05 Temperature 98.3 F 98.0 F 98.4 F Pulse Rate 79 68 86 Pulse Rate [Pulse Oximeter] Respiratory Rate 16 18 18 Blood Pressure 107/63 95/57 L 104/63 Blood Pressure [Le ft Arm] Blood Pressure [Ri ght Arm] Pulse Oximetry 93 93 96 Oxygen Delivery Me thod 08/01/23 19:37 08/01/23 19:38 08/01/23 21:39 Temperature 98.0 F 98.0 F 98.0 F Pulse Rate 83 Pulse Rate [Pulse Oximeter] 83 Respiratory Rate 20 20 Blood Pressure 115/69 Blood Pressure [Le ft Arm] Blood Pressure [Ri ght Arm] 115/69 Pulse Oximetry 95 95 Oxygen Delivery Me thod Room Air 08/01/23 22:00 08/01/23 22:16 08/01/23 22:17 Temperature 98.5 F Pulse Rate Pulse Rate [Pulse Oximeter] 80 80 Respiratory Rate 16 Blood Pressure Blood Pressure [Le ft Arm] Blood Pressure [Ri ght Arm] 117/66 Pulse Oximetry 96 96 Oxygen Delivery Me thod Room Air 08/02/23 03:51 08/02/23 03:53 08/02/23 07:00 Temperature 97.7 F 97.7 F 98.2 F Pulse Rate Pulse Rate [Pulse Oximeter] 80 85 Respiratory Rate 16 20 Blood Pressure Blood Pressure [Le ft Arm] 122/72 Blood Pressure [Ri ght Arm] 103/62 Pulse Oximetry 95 94 Oxygen Delivery Me thod Room Air Room Air 08/02/23 07:00 08/02/23 07:00 08/02/23 11:00 Temperature 99.2 F Pulse Rate Pulse Rate [Pulse Oximeter] 85 86 Respiratory Rate 20 18 Blood Pressure Blood Pressure [Le ft Arm] 111/68 Blood Pressure [Ri ght Arm] Pulse Oximetry 94 94 Oxygen Delivery Me thod Room Air DS: Data Data Completed and Pending Completed studies during hospitalization: Study: CT-Pelvis W/IV ONLY-07/30/2023 11:55:45 AM Ordering Physician: HIEN Final Report: EXAM: CT OF THE PELVIS, WITH IV CONTRAST CLINICAL INDICATION: Progressive right buttock pain. Hematoma SI joint surgery 1 month prior. COMPARISON STUDIES: None. TECHNICAL: Enhanced CT of the pelvis with axial images. Sagittal oblique and coronal oblique reformatted images were created. Contrast: Isovue 370, 89 mL. FINDINGS: OSSEOUS STRUCTURES: No acute fractures are evident. Partial visualization of a chronic fracture in the posterior process of L3. Multiple benign islands. No evidence for chronic avascular necrosis. OTHER JOINT SPACES: Right Hip: No effusion. Mild narrowing and hypertrophic change. Left Hip: No effusion. Mild narrowing and hypertrophic change. SI Joints: Right SI joint fusion. No hardware fracture or lucency adjacent to the fixation. Moderate degenerative changes in the left SI joint. Lumbar Spine: Degenerative changes in the lower lumbar spine. SOFT TISSUES MUSCLES AND TENDONS: There is a large hematoma extending from the right greater sciatic notch laterally into the right gluteal region displacing the gluteus medius and kirsten musculature as well as the piriformis. The hematoma measures 16 x 13 x 10 cm in size. There is a mixture of decreased and increased density within the hematoma. The majority of the hematoma demonstrates increased density centrally. Findings are consistent with an acute to subacute component of the hematoma. The superior gluteal artery abuts the medial margin of the hematoma. However no arterial extravasation is identified. No retracted tendon tear. No muscle atrophy. INTRAPELVIC CONTENTS: Trace free fluid in the pelvis. The free fluid does not appear high density to suggest hemorrhage. Zuluaga catheter in the bladder. Postoperative changes in the lower anterior abdominal wall. NEUROVASCULAR STRUCTURES: No abnormality of the neurovascular structures. IMPRESSION: 1. Large hematoma in the right gluteal region, the majority of which appears acute. No arterial extravasation from the adjacent superior gluteal artery. 2. Trace free fluid in the pelvis. 3. Internal fixation of the right SI joint. 4. Degenerative changes in the left SI joint and both hips. 5. Degenerative changes lower lumbar spine. 6. Partially visualized chronic fracture of the posterior process of L3. Please note that all CT scans at this facility use dose modulation, iterative reconstruction, and/or weight-based dosing when appropriate to reduce radiation dose to as low as reasonably achievable. Dictated by Jaden Aguilera MD @ 07/30/2023 12:25:28 PM Signed by: Jaden Aguilera MD @07/30/2023 12:25:28 PM (Electronic Signature) Dictated By: Jaden Aguilera MD Signed By: 07/30/23 1314 DD/ 1225 TD/TT: 07/30/23 1313 Labs on day of discharge: Labs from last 24 hours 08/02/23 08/02/23 08/01/23 11:50 06:07 19:46 WBC 8.06 RBC 2.84 L Hgb 8.5 L 8.3 L 8.8 L Hct 25.7 L MCV 91 MCH 29 MCHC 32 RDW Coeff of Rossana 14.5 Plt Count 241 Neut % (Auto) 77.8 H Lymph % (Auto) 10.5 L [place] % (Auto) 10.5 Eos % (Auto) 0.7 Baso % (Auto) 0.4 Neut # (Auto) 6.30 Lymph # (Auto) 0.80 L [place] # (Auto) 0.80 Eos # (Auto) 0.06 Baso # (Auto) 0.03 Abs Immat Gran (auto) 0.01 Imm/Tot Granulo (auto) 0.1 C-Reactive Protein 15.5 H Blood Type Antibody Screen Crossmatch (AH) 07/30/23 10:45 WBC RBC Hgb Hct MCV MCH MCHC RDW Coeff of Rossana Plt Count Neut % (Auto) Lymph % (Auto) [place] % (Auto) Eos % (Auto) Baso % (Auto) Neut # (Auto) Lymph # (Auto) [place] # (Auto) Eos # (Auto) Baso # (Auto) Abs Immat Gran (auto) Imm/Tot Granulo (auto) C-Reactive Protein Blood Type O Positive Antibody Screen NEGATIVE Crossmatch ([facility]) See Detail Discharge Plan Discharge Disposition: Home, Self-Care Date of Admission: 08/02/23 10:34 Attending Provider on Discharge: Winirfed Osuna Primary Care Provider: Wiley Chiu Condition: Improved Anticipated Discharge Date/Time: 08/02/23 15:56 Discharge Medications: New sennosides-docusate sodium [Stool Softener-Laxative] 8.6-50 mg Tablet 2 tab PO BID Qty: 120 0RF Metamucil (with sugar) 3.4 gram Powder In Packet 1 tsp PO DAILY Qty: 30 0RF polyethylene glycol 3350 [Miralax] 17 gram Powder In Packet 17 g PO DAILY PRN (Reason: Constipation) Qty: 30 0RF Poly-Iron 150 Forte 150-25-1 mg-mcg-mg Capsule 1 cap PO DAILY Qty: 30 0RF oxycodone 5 mg Tablet 5 - 10 mg PO Q3H MDD 40 mg PRNQty: 60 0RF Continued albuterol sulfate 90 mcg/actuation HFA aerosol inhaler 2 puff inhalation Q4-6H PRN (Reason: shortness of breath or wheezing) Qty: 6.7 0RF tadalafil [Cialis] 5 mg tablet 5 mg PO DAILY valacyclovir [Valtrex] 1 gram tablet 1,000 mg PO DAILY Patient Comments: PRN for cold sore carvedilol 12.5 mg tablet 12.5 mg PO BID tamsulosin 0.4 mg capsule 0.8 mg PO Q24H fluticasone propionate 50 mcg/actuation spray,suspension 1 spray INTRANASAL DAILY rosuvastatin 40 mg tablet 40 mg PO DAILY cyclobenzaprine 10 mg tablet 10 mg PO TID naloxone 4 mg/actuation spray,non-aerosol 1 spray INTRANASAL PRN Patient Comments: SPRAY 1 SPRAY INTO 1 NOSTRIL ALTERNATING NOSTRILS NEEDED FOR OPIOD REVERSAL EVERY 2-3 MINUTES UNTIL ASSISTANCE ARRIVES gabapentin 300 mg capsule 300 mg PO TID Discontinued aspirin [Adult Aspirin Regimen] 81 mg tablet,delayed release (DR/EC) 81 mg PO QDAY Patient Comments: on hold due to bleeding oxycodone 5 mg tablet 5 mg PO Q4H Patient Comments: every 4-5 hours as needed for pain Discharge Orders: Discharge Order (Routine); Ordered 08/03/23 Ordered By: Maliha Cunningham Patient Education: Iron Supplements (By mouth), Laxative, Bulk-forming (By mouth) (Fiber, Benefiber, Citrucel, Equalactin), Oxycodone, Rapid Release (By mouth), Polyethylene Glycol 3350 (By mouth), Senna (By mouth), Urinary Retention in Men (GEN), Anemia (DC) Additional Instructions: F/u with Dr. Dunbar this week. If you do not get a call from his clinic by tomorrow, you should call his clinic. They said they would call you to set up an appointment. Physical Therapy - [facility] Follow Up Appointments: Nam Fox [Other] - 11/22/23 12:00 pm ([facility] for follow up) [facility] [Provider Group] - 08/06/23 (PILLO - SI joint fusion surgery in 07/10 with complications of hematoma - right buttock and leg.) Wiley Chiu MD [Primary Care Provider] - 08/10/23 11:45 am ([facility] for follow up) Forms: MyHealth Info Instructions Documented by User: Maliha Cunningham MD 08/03/23 14:36 DS: Providers Provider Attending Physician on discharge: Maliha Cunningham MD [facility] DS: Diagnosis Discharge Diagnosis (1) Cardiomyopathy: Status: Chronic Problem details: - follows with Dr. Mario of Cardiology, on Carvedilol and ASA as outpatient (holding ASA since surgery/hematoma) - Last TTE in [facility] chart from 04/2023: 1. Normal LV size, mildly increased wall thickness, low normal global systolic function with an estimated EF of 50 - 55%. 2. Moderately enlarged left atrium. 3. The aortic valve is sclerotic and trileaflet, no stenosis and trivial regurgitation. 4. The mitral valve is repaired with an annuloplasty ring. Mean gradient 2 mmH g. Trace MR. 5. The ascending aorta is dilated with a maximal diameter of 4.2 cm. 6. The aortic sinus is dilated with a maximal diameter of 4.6 cm. 7. compared to echo report 07/2021: aortic sinus 4.2 cm. Asc aorta 4 cm. (2) Acute urinary retention: Status: Acute Problem details: - known BPH with LUTS, likely flared with addition of narcotics to medical regimen - no concern for acute neurologic process at this time - trial without Zuluaag was successful 08/01 into 08/02. Discharged without Zuluaga (3) Acute blood loss anemia: Status: Acute Problem details: - postoperative, Hgb trending down slightly, possibly just drift, but he is now less than 8 this afternoon. He received 1 u PRBC. - Hgb now stable at 8.3-8.8. (4) Hematoma of right buttock: Status: Acute Problem details: - imaging on 07/29 exhibits larger hematoma with concern of active bleeding - serial Hgb, transfuse if <8 given cardiomyopathy, hold blood thinners - if bleeding worsens, may need transfer to tertiary care center for IR - 07/30 Bleeding now stable, pain control challenging: increase oxycodone dose and frequency. I have spoken with his nurse and asked that morphine IV be used only for breakthrough pain. I spoke with patient and about transitioning to oral medications only in anticipation of discharge in the next day or so. - Mobility is also an issue. This is improving with better pain control, and it looks like he will likely be able to go home when medically stable. (5) Status post fusion of sacroiliac joint: Status: Acute Problem details: - Dr. Dunbar, 06/29/23, [facility] - 07/[address] Dunbar again today and have left message with his clinic. - 08/[address] Dunbar's clinic twice again today and left messages with the sample checker. She was going to try to get a hold of him or his partners, but we have received no response. DS: Summary Hospital Course Hospital Course: 67-year-old male who had an SI joint fusion 06/29/2023 at [facility] with Dr. Dunbar. On 07/05/2023 he had worsening pain and was seen in their emergency department. He was found to have a hematoma. He held his aspirin and had follow-up imaging with his ortho team. On 07/28 he started having even more pain that went down his entire right leg starting at the buttock where the side surgery is. He had no fall or trauma since surgery and no known history of bleeding disorders. But given his previous postoperative bleeding had been referred to Hematology. That appointment is in August. He was admitted to monitor Hgb and for pain control. He has some issues with mobility when he was very painful, but since his pain is come under control those have resolved. His hemoglobin drifted down and since it was lower than 8, I gave him a transfusion of 1 unit packed red blood cells. We have been attempting to get a hold of his primary ortho team at [facility], but have not had any success Wednesday, Wednesday, or today. I spoke with Solo and his about this and they would like me to call our ortho team to discuss with them. At this point since his hemoglobin is stable, it is likely not bleeding or very slow bleed. Anticipate after discussing with Ortho we will likely be able to send him home later today. Please see above under diagnoses for further details. Additionally he had pre urinary retention for which a Zuluaga catheter was placed but this was removed prior to discharge. Status at Discharge Functional status at discharge: uses cane/walker Overall status at discharge: patient is progressing back to baseline Time Spent with Patient Time spent: Greater than 30 minutes Discharge Plan Discharge Disposition: Home, Self-Care Date of Admission: 08/02/23 10:34 Attending Provider on Discharge: Winifred Osuna Primary Care Provider: Wiley Chiu Condition: Improved Anticipated Discharge Date/Time: 08/02/23 15:56 Discharge Medications: New sennosides-docusate sodium [Stool Softener-Laxative] 8.6-50 mg Tablet 2 tab PO BID Qty: 120 0RF Metamucil (with sugar) 3.4 gram Powder In Packet 1 tsp PO DAILY Qty: 30 0RF polyethylene glycol 3350 [Miralax] 17 gram Powder In Packet 17 g PO DAILY PRN (Reason: Constipation) Qty: 30 0RF Poly-Iron 150 Forte 150-25-1 mg-mcg-mg Capsule 1 cap PO DAILY Qty: 30 0RF oxycodone 5 mg Tablet 5 - 10 mg PO Q3H MDD 40 mg PRNQty: 60 0RF Continued albuterol sulfate 90 mcg/actuation HFA aerosol inhaler 2 puff inhalation Q4-6H PRN (Reason: shortness of breath or wheezing) Qty: 6.7 0RF tadalafil [Cialis] 5 mg tablet 5 mg PO DAILY valacyclovir [Valtrex] 1 gram tablet 1,000 mg PO DAILY Patient Comments: PRN for cold sore carvedilol 12.5 mg tablet 12.5 mg PO BID tamsulosin 0.4 mg capsule 0.8 mg PO Q24H fluticasone propionate 50 mcg/actuation spray,suspension 1 spray INTRANASAL DAILY rosuvastatin 40 mg tablet 40 mg PO DAILY cyclobenzaprine 10 mg tablet 10 mg PO TID naloxone 4 mg/actuation spray,non-aerosol 1 spray INTRANASAL PRN Patient Comments: SPRAY 1 SPRAY INTO 1 NOSTRIL ALTERNATING NOSTRILS NEEDED FOR OPIOD REVERSAL EVERY 2-3 MINUTES UNTIL ASSISTANCE ARRIVES gabapentin 300 mg capsule 300 mg PO TID Discontinued aspirin [Adult Aspirin Regimen] 81 mg tablet,delayed release (DR/EC) 81 mg PO QDAY Patient Comments: on hold due to bleeding oxycodone 5 mg tablet 5 mg PO Q4H Patient Comments: every 4-5 hours as needed for pain Discharge Orders: Discharge Order (Routine); Ordered 08/03/23 Ordered By: Maliha Cunningham Patient Education: Iron Supplements (By mouth), Laxative, Bulk-forming (By mouth) (Fiber, Benefiber, Citrucel, Equalactin), Oxycodone, Rapid Release (By mouth), Polyethylene Glycol 3350 (By mouth), Senna (By mouth), Urinary Retention in Men (GEN), Anemia (DC) Additional Instructions: F/u with Dr. Dunbar this week. If you do not get a call from his clinic by t omorrow, you should call his clinic. They said they would call you to set up an appointment. Physical Therapy - [facility] Follow Up Appointments: Nam Fox [Other] - 11/22/23 12:00 pm ([facility] for follow up) [facility] [Provider Group] - 08/06/23 ([facility] - SI joint fusion surgery in 07/10 with complications of hematoma - right buttock and leg.) Wiley Chiu MD [Primary Care Provider] - 08/10/23 11:45 am ([facility] for follow up) Forms: [employer] Info Instructions
[2023-08-02] MEDS: MAGNESIUM HYDROXIDE 30 ML ORAL.SUSP PO ×2 (14:29→22:21)
[2023-08-02] MEDS: 0.9 % SODIUM CHLORIDE 500 ML 500 ML IV (17:42)
--- NOTE | 2023-08-02 18:05 | PC.NURSE ---
End of Shift Note: Patient's pain appears to be controlled with oral pain medication. Patient was going to discharge today but has not voided since his cook cath was removed have done bladder scans see documentation. Currently getting a 500cc bolus to try and make him void. Also today is day #4 since he has had a bowel movement. He has received several things to hopefully help him also have a bowel movement but this has not happened either. Will continue to update Dr. Flores and see what more he wants done before he can discharge home. is concerned as she does not drive after dark. Will continue to monitor.
[2023-08-02] MEDS: ROSUVASTATIN CALCIUM 10 MG TABLET 40 MG PO (21:29)
[2023-08-02] MEDS: SENNOSIDES/DOCUSATE TABLET 2 TAB PO (21:29)
[2023-08-02] MEDS: bisacodyL 10 MG SUPP.RECT PR (22:21)
[2023-08-03 03:00] VITALS: RESP 16
[2023-08-03] MEDS: OXYCODONE 5 MG TABLET PO ×2 (03:57→08:41)
[2023-08-03] MEDS: ACETAMINOPHEN 500 MG TABLET 1000 MG PO ×2 (03:57→10:44)
[2023-08-03 07:00] VITALS: BP 116/71; PULSE 81; RESP 16; TEMP 37; O2SAT 92
--- NOTE | 2023-08-03 07:51 | PC.NURSE ---
2816-2708: Patient resistant to ambulation d/t pain. Nurse educated patient on risks and benefits of sedentary behavior. Pain managed with PRN Oxycodone and scheduled medications. Active ice to hematoma. No BM this shift despite administration of suppository and MOM. Void of 625 mL at 2115 and post void BS of 318. MD updated and no new orders. Patient had incontinent of urine episode on BR floor around 0400, unable to measure.
[2023-08-03] MEDS: SENNOSIDES/DOCUSATE TABLET 2 TAB PO (08:40)
[2023-08-03] MEDS: CYCLOBENZAPRINE HCL 10 MG TABLET PO (08:40)
[2023-08-03] MEDS: TAMSULOSIN HCL 0.4 MG CAPSULE 0.8 MG PO (08:40)
[2023-08-03] MEDS: GABAPENTIN 300 MG CAPSULE PO (08:41)
[2023-08-03] MEDS: PSYLLIUM HUSK (WITH SUGAR) 12 GM PACKET PO (08:41)
[2023-08-03] MEDS: carvediloL 6.25 MG TABLET 12.5 MG PO (08:41)
[2023-08-03] MEDS: SODIUM CHLORIDE 0.9 % (FLUSH) 10 ML SYRINGE 5 ML IVF (08:42)
[2023-08-03 10:56] VITALS: BP 126/77; PULSE 67; RESP 18; TEMP 37; O2SAT 96
--- NOTE | 2023-08-03 13:03 | PC.NURSE ---
Nursing Care Hours: 9145-5211 Pt this shift calm and cooperative with cares, independent in room. Pain controlled with ice, scheduled and PRN medications. VSS. C/o R foot feeling asleep and tingling. Color of bilat legs and feet equal, temperature equal with cool digits bilat, and cap refill <3sec. Pedal pulse of R 1+ and faint, L foot 3+. Pt reports bruising and swelling greatly decreased. Walked cueva with junior underwriter x1 about 100ft. No BM reported. Refrigeration Systems Installer can hear pt passing gas. Voiding independently in bathroom. DC instructions went over with pt and spouse. All questions answered. Encouraged to move frequently, drink plenty of water, take bowel aid as directed to promote BM and instructed to call with concerns or follow up with primary regarding constipation.
== END 2023-08-03 11:45 | disposition home or self-care (01) | DRG 920 ==
LOC: ED 17:33 → MEDSURG 17:52
PROVIDERS: Family Medicine; Admitting Provider Family Medicine; Emergency Provider Family Medicine; PCP Surgery; Visit Provider Family Medicine
DX: M96.840 Postprocedural hematoma of a musculoskeletal structure following a musculoskeletal system procedure (principal); D62 Acute posthemorrhagic anemia; I42.9 Cardiomyopathy, unspecified; Z98.1 Arthrodesis status; R53.1 Weakness; N40.1 Benign prostatic hyperplasia with lower urinary tract symptoms; R33.8 Other retention of urine; R35.1 Nocturia; M79.651 Pain in right thigh
CPT/HCPCS: 36415; 36430; 51798; 72193; 80053; 81001; 85018; 85025; 85610; 85730; 86140; 86850; 86900; 86901; 86922; 94761; 97116; 97161; 99284; 99285; A9270; G0378; J2270; J7030; P9016; Q9967

== ENCOUNTER 2024-01-13 10:00 | Outpatient (RCR) | payer MEDICARE, BC, SELFPAY | END 2024-05-12 23:59 | disposition home or self-care (01) | PROVIDERS: PCP Surgery; Visit Provider Surgery | DX: M46.1 Sacroiliitis, not elsewhere classified (principal); R26.2 Difficulty in walking, not elsewhere classified; M62.81 Muscle weakness (generalized); M25.651 Stiffness of right hip, not elsewhere classified; M25.551 Pain in right hip; Z51.89 Encounter for other specified aftercare | CPT/HCPCS: 97110; 97112; 97116; 97140; 97161; 97162; 97535 ==

== ENCOUNTER 2025-04-24 10:06 | Outpatient (CLI) | payer MEDICARE, BC, SELFPAY | END 2025-04-24 10:07 | disposition home or self-care (01) | LOC: INJ CL 10:07 | PROVIDERS: PCP Surgery; Visit Provider Family Medicine | DX: M54.16 Radiculopathy, lumbar region (principal); M48.062 Spinal stenosis, lumbar region with neurogenic claudication | CPT/HCPCS: 64483; 64484; J1100; Q9966 ==